=== PATIENT | female | born 1980 | race American Indian/Alaskan Native ===

== ENCOUNTER 2020-06-30 17:06 | Inpatient (IN) | payer MEDICAID ==
--- NOTE | 2020-06-30 18:41 | History and Physical Report ---
History of Present Illness Date of examination: 06/30/20 Chief complaint: sent over to triage for elevated b/p @ weeks, hx CHTN. History of present illness: EDC Confirmation: 08/04/2020 Past History : 1 Term Births: 0 Premature Births: 0 Living Children: 0 Para: 0 Mult. Births: 0 Prev : 0 Prev. attempt? 0 Aborta: 0 Elect. Ab: 0 Spont. 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 Infection History Hx of STD: none HIV Risk Eval: low risk Hepatitis B Risk Eval: low risk Personal hx. of genital herpes: no Partner hx. of genital herpes: no Rash, Viral, or Febrile illness since last LMP? no Varicella/Chicken Pox Status: Unknown TB Risk: no Genetic History ADVANCED MATERNAL AGE Congenital Heart Defect: Mom: no Dad: no Chirag Disease: Mom: no Dad: no Thalassemia Mom: no Dad: no Neural Tube Defect Mom: no Dad: no Down's Syndrome Mom: no Dad: no Redd-Sachs Mom: no Dad: no Sickle Cell Disease/Trait Mom: no Dad: no Hemophilia Mom: no Dad: no Muscular Dystrophy Mom: no Dad: no Cystic Fibrosis Mom: no Dad: no Stutsman Chorea Mom: no Dad: no Mental Retardation Mom: no Dad: no Fragile X Mom: no Dad: no Other Genetic/Chromosomal Disorder Mom: no Dad: no Child w/other defect Mom: no Dad: no Enviromental Exposures Xray Exposure: no Medication, drug, or alcohol use since LMP: no Chemical/Other Exposure: no Exposure to Cat Liter: no Hx of Parvovirus (Fifth Disease): no Occupational Exposure to Children: none Current Allergies: No known allergies Laboratory Results Date/Time Collected: 03/09/2020 Routine Urinalysis Leukocytes: negative Nitrite: negative Urobilinogen: negative Protein: Negative Blood: negative Ketone: negative Bilirubin: negative Glucose: Negative Urine HCG: positive Family History Summary: Father - Has Family History of Diabetes MGM - Has Family History of CVA or Stroke General Comments - FH: Pt did not know @ her biological father until recently Social History: Patient is Smoking History: Patient has never smoked. 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) Family/Genetic History: other (see HPI) Social history: - Obstetrical History Expected Date of Delivery: 08/04/20 Actual Gestation: 35 Week(s) 0 Day(s) : 1 Para: 0 Hx # Term Pregnancies: 0 Number of Pregnancies: 0 Spontaneous Abortions: 0 Induced : 0 Number of Living Children: 0 Medications and Allergies Allergies Allergy/AdvReac Type Severity Reaction Status Date / Time No Known Allergies Allergy Unverified 06/30/20 17:58 Home Medications Medication Instructions Recorded Confirmed Last Taken Type NIFEdipine [Nifedipine ER] 30 mg PO 06/30/20 06/30/20 History 1 Review of Systems All systems: negative - Vital Signs Vital signs: Vital Signs Pulse BP 69 175/92 06/30/20 17:57 06/30/20 17:57 Temp Pulse Resp BP Pulse Ox 98.6 F 67 20 157/94 99 06/30/20 17:59 06/30/20 18:33 06/30/20 17:59 06/30/20 18:27 06/30/20 18:33 - Physical Exam Breasts: Positive: normal Cardiovascular: Regular rate Lungs: Positive: Normal air movement Abdomen: Positive: normal appearance, soft Genitourinary (Female): Positive: normal external genitalia, normal perenium Vulva: both: normal Vagina: Positive: normal moisture Uterus: Positive: normal size, normal contour Anus/Rectum: Positive: normal perianal skin Extremities: Positive: normal Deep Tendon Reflex Grade: Normal +2 - Obstetrical FHR: auscultation normal Results All other labs normal. Assessment and Plan 39y/o @ 35 weeks, being followed by [facility] for HTN. She reports taking her nifedipine 30mg this morning. Denies LUNA, visual changes or epigastric pain. b/p in office 150/90. serial b/p's in triage 150-160's/90. Plan to admit for monitoring and 24h urine collection. Plan reviewed with patient, all questions addressed. Dr. Alvarez consulted in making plan of care. - Patient Problems (1) 35 weeks gestation of Current Visit: Yes Status: Acute (2) HTN (hypertension) Current Visit: Yes Status: Acute Qualifiers: Hypertension type: essential hypertension Qualified Code(s): I10 - Essential (primary) hypertension Plan to address problem: Monitor for pre-e superiposed on existing htn pre-e labs and repeat 24hr urine. 24hr urine TP 182 on 03/20/2020 (3) Advanced maternal age (AMA) in Current Visit: Yes Status: Acute
[2020-06-30] MEDS ORDERED: SODIUM CHLORIDE NASAL SPRAY 44ML NS PRN (18:48)
[2020-06-30] MEDS ORDERED: DOCUSATE SODIUM 100 MG CAP PO PRN (18:48)
[2020-06-30] MEDS ORDERED: ALUM-MAG HYDROXIDE-SIMETHICONE 200-200-20MG/5ML ORAL LIQD 30 ML PO PRN (18:48)
[2020-06-30] MEDS ORDERED: ONDANSETRON 4 MG/2 ML INJ IV PRN (18:48)
[2020-06-30] MEDS ORDERED: ACETAMINOPHEN 325 MG TAB PO PRN (18:48)
[2020-06-30] MEDS ORDERED: WITCH HAZEL/ GLYCERIN PAD TP PRN (18:48)
[2020-06-30] MEDS ORDERED: MAGNESIUM HYDROXIDE (MOM) ORAL LIQD UDC PO PRN (18:48)
[2020-06-30] MEDS ORDERED: diphenhydrAMINE 25 MG CAP PO PRN (18:48)
[2020-06-30] MEDS ORDERED: SIMETHICONE 80 MG CHEW TAB PO PRN (18:48)
[2020-06-30 19:28] LABS: Hematocrit 36.5 % (30.3-42.9); Hemoglobin 12.5 gm/dl (10.1-14.3); Mean Corpuscular HGB Conc 34 % (30-34); Mean Corpuscular Volume 93 fl (79-97); Platelet Count 209 K/mm3 (140-440); Red Blood Count 3.94 M/mm3 (3.65-5.03); Red Cell Distribution Width 14.1 % (13.2-15.2)
[2020-06-30 19:44] LABS: Alanine Aminotransferase 34 units/L (7-56); Uric Acid 4.8 mg/dL (3.5-7.6)
[2020-06-30] MEDS: BETAMET ACET/BETAMET NA PH 6 MG/ML INJ 5 ML MDV IM SCH (20:15)
[2020-07-01] MEDS ORDERED: ACETAMINOPHEN 325 MG TAB PO PRN (07:30)
--- NOTE | 2020-07-01 07:50 | Progress Note ---
Assessment and Plan A: 39 y.o. @ 35 + wks, cHTN r/o superimposed pre e. 24 hr urine in progress. Received 1 dose of steroids. P: Continue with current plan. Procardia XL 30 mg q day. 24 hr urine ends @ 190. Second dose of steroids @ 2014. Subjective - Subjective Date of service: 07/01/20 (Pt desires to go home.) Principal diagnosis: IUP @ 35 + wks, cHTN/ r/o superimposed pre e on cHTN Objective - Vital Signs Vital Signs: Vital Signs - 12hr 06/30/20 06/30/20 06/30/20 19:50 19:51 23:05 Temperature 97.9 F Pulse Rate 63 63 72 Respiratory 18 Rate Blood Pressure 161/78 133/74 Blood Pressure 161/78 [Right] 06/30/20 07/01/20 07/01/20 23:25 00:25 01:25 Temperature Pulse Rate 65 62 67 Respiratory Rate Blood Pressure 130/66 129/60 136/79 Blood Pressure [Right] 07/01/20 07/01/20 07/01/20 02:25 03:25 04:25 Temperature Pulse Rate 56 L 56 L 58 L Respiratory Rate Blood Pressure 144/70 141/73 122/66 Blood Pressure [Right] 07/01/20 07/01/20 07/01/20 05:25 06:25 06:31 Temperature Pulse Rate 60 63 63 Respiratory Rate Blood Pressure 123/60 119/61 135/69 Blood Pressure [Right] 07/01/20 07/01/20 06:39 07:09 Temperature 98.6 F Pulse Rate Respiratory 18 18 Rate Blood Pressure Blood Pressure [Right] - Exam Narrative Exam: Pt has a strong desire to go home. We discussed that she has to finish her 24 hour urine and that if she continues to be asymptomatic and her BP's stay WNL then its possible that she will be discharged home. Also second dose of steroids due @ 2014, She denies blurred vision, spots before her eyes, chest pain, shortness of breath, and upper abdominal pain. She has a mild LUNA but states that it is going away after Tylenol administration. Pt also uncomfortable with monitors. Will allow a break so that pt can shower and eat at this time. Will resume EFM after AM care. Breasts: deferred Cardiovascular: Regular rate Lungs: Normal air movement Abdomen: Present: normal appearance, soft Vulva: both: normal Uterus: Present: normal FHR: category 1 Uterine Contraction Monitor Mode: External Uterine Contraction Pattern: Absent Extremities: normal Deep Tendon Reflex Grade: Normal +2 - Labs Labs: Abnormal Labs 06/30/20 18:46 Lactate Dehydrogenase 278 H Laboratory Results - last 24 hr 06/30/20 06/30/20 06/30/20 18:46 18:46 20:20 WBC 6.9 RBC 3.94 Hgb 12.5 Hct 36.5 MCV 93 MCH 32 MCHC 34 RDW 14.1 Plt Count 209 Creatinine 0.6 Estimated GFR > 60 Uric Acid 4.8 AST 32 ALT 34 Lactate Dehydrogenase 278 H Blood Type O POSITIVE Antibody Screen Negative
[2020-07-01] MEDS ORDERED: ACETAMINOPHEN 500 MG TAB PO PRN (08:00)
[2020-07-01] MEDS: PRENATAL VIT27-FE FUMARATE-FOLIC ACID VIT TAB PO SCH (08:43)
[2020-07-01] MEDS ORDERED: NIFEdipine XL 30 MG TAB PO SCH (10:00)
[2020-07-01] MEDS ORDERED: NIFEdipine XL 30 MG TAB PO ONE (10:00)
--- NOTE | 2020-07-01 12:26 | Event Note ---
Date: 07/01/20 (Pt refusing IV placement) Was told by RN that pt did not have an IV and would need placement. RN tried to speak with pt regarding IV placement and pt continued to refuse. States that if her blood pressure is still elevated then she will allow IV placement. Had a few elevated BP's but mostly in the 120's-130's/60-80's. She continues to deny s/sx of pre e. Will continue to observe BP's and speak with patient again regarding IV placement.
--- NOTE | 2020-07-01 21:39 | Event Note ---
<CHARLES ABAD - Last Filed: 07/01/20 21:29> Date: 07/01/20 (Pt has strong desire to go home. ) Was called by the RN because they pt requested to go home , refused her second steroid injection, and wanted to talk with a provider. Went to go talk to the patient to explain that steroids needed to help with the maturation the baby's lungs. We also discussed the results of her 24 hr urine. The 24 hour urine total was higher today than in the office and d/t increase in protein in urine we will need to consult with [facility] for recommendations for further management. Pt has had some elevated blood pressures, 160's/80's this shift. She denies chest pain, blurred vision, spots before her eyes, shortness of breath, and upper abdominal pain. States that she has a slight LUNA that is relieved with Tylenol. Discussed with patient that it is likely that we will move towards delivery and she will not be able to go home at this time d/t increase in protein in urine sample with elevated blood pressures. Discussed pt with Dr. Faye. [facility] consult to be placed, and will await recommendations. Pt agrees at this time to get the second dose of steroids and also IV placement. She verbalized understanding of the plan of care and is in agreement. <MEGGAN FAYE - Last Filed: 07/01/20 22:06> Initial BP in the office on 06/30/20 was 180/100, the rechk in the office was 150/90. BP's stable now. She initially refused the second dose of steroids however after a discussion with Silverio Abad [facility] she now will accept the second dose. Will consult [facility] in am for guidance in this patient with CHTN with superimposed preeclampsia
[2020-07-01] MEDS ORDERED: BETAMET ACET/BETAMET NA PH 6 MG/ML INJ 5 ML MDV IM ONE (22:15)
[2020-07-01] MEDS: BETAMET ACET/BETAMET NA PH 6 MG/ML INJ 5 ML MDV IM SCH (22:40)
[2020-07-02] MEDS ORDERED: ACETAMINOPHEN 325 MG TAB PO PRN ×2 (01:58→13:07)
[2020-07-02] MEDS: NIFEdipine XL 30 MG TAB PO SCH (07:43)
--- NOTE | 2020-07-02 09:42 | Progress Note ---
Assessment and Plan A: 39 y.o. @ 35.2 wks. Category 1 EFM tracing. Increase in protein in 24 hr urine sample (182 on 03/19/2020 to 1020.0 on 07/01/2020). BP ranges 120-140's/50-80's. With 2 elevated BP 160's/80's/ during the day shift yesterday. [facility]. Awaiting recommendations. Subjective - Subjective Date of service: 07/02/20 (Pt doing well today) Principal diagnosis: IUP @ 35.2 wks, cHTN/ r/o superimposed pre e on cHTN Objective - Vital Signs Vital Signs: Vital Signs - 12hr 07/01/20 07/02/20 07/02/20 22:03 00:00 00:12 Temperature 98.7 F Pulse Rate 70 73 Respiratory 18 Rate Blood Pressure 129/59 142/74 O2 Sat by Pulse Oximetry 07/02/20 07/02/20 07/02/20 01:03 02:04 02:17 Temperature Pulse Rate 66 60 Respiratory 18 Rate Blood Pressure 157/76 134/68 O2 Sat by Pulse Oximetry 07/02/20 07/02/20 07/02/20 03:03 04:03 05:03 Temperature Pulse Rate 74 61 59 L Respiratory Rate Blood Pressure 130/73 125/67 136/79 O2 Sat by Pulse Oximetry 07/02/20 07/02/20 07/02/20 06:49 07:03 07:41 Temperature 99 F Pulse Rate 65 63 64 Respiratory 18 Rate Blood Pressure 135/82 130/68 O2 Sat by Pulse 100 Oximetry 07/02/20 07/02/20 07:42 09:04 Temperature Pulse Rate 64 61 Respiratory Rate Blood Pressure 126/65 O2 Sat by Pulse 99 Oximetry - Exam Narrative Exam: Pt denies LUNA, blurred vision, spots before her eyes, shortness of breath, chest pain, and upper abdominal pain. Explained plan of care for the day. Pt has completed a dose of steroids. Explained again the results of her 24 hr urine protein, during this admission 1020.0 which is an increase from 182 that was submitted in the office. [facility] has been consulted and called. Dr. Guerra ironworker for the group, left message that pt needs evaluation, and recommendations requested. Awaiting their recommendations. Pt verbalized understanding and agrees to the plan of care at this time. Breasts: deferred Cardiovascular: Regular rate Lungs: Normal air movement Abdomen: Present: normal appearance, soft Vulva: both: normal Uterus: Present: normal FHR: category 1 Uterine Contraction Monitor Mode: External Uterine Contraction Pattern: Absent Extremities: normal Deep Tendon Reflex Grade: Normal +2 - Labs Labs: Abnormal Labs 06/30/20 06/30/20 18:46 19:06 Lactate Dehydrogenase 278 H Ur Total Protein 24 Hr 1020.00 H Urine Total Protein 34 H Laboratory Results - last 24 hr 06/30/20 19:06 Urine Total Volume 3000 Ur Total Protein 24 Hr 1020.00 H Urine Total Protein 34 H
--- NOTE | 2020-07-02 10:24 | Consultation ---
Past History Social history: Medications and Allergies Allergies Allergy/AdvReac Type Severity Reaction Status Date / Time No Known Allergies Allergy Unverified 06/30/20 17:58 Home Medications Medication Instructions Recorded Confirmed Last Taken Type NIFEdipine [Nifedipine ER] 30 mg PO DAILY 06/30/20 07/01/20 06/30/20 History 1 Aspirin 1 tab PO DAILY 07/01/20 07/01/20 06/29/20 History Vitamin 1 tab PO DAILY 07/01/20 07/01/20 06/29/20 History Active Meds: Active Medications Acetaminophen (Tylenol) 325 mg PO Q6H PRN PRN Reason: Pain MILD(1-3)/Fever >100.5/LUNA Last Admin: 07/02/20 02:17 Dose: 325 mg Documented by: Al Hydrox/Mg Hydrox/Simethicone (Alum-Mag Hydrox-Simeth [phone]/5ml) 30 ml PO Q6H PRN PRN Reason: Indigestion Diphenhydramine HCl (Benadryl) 25 mg PO Q6H PRN PRN Reason: Itching Docusate Sodium (Colace) 100 mg PO Q12H PRN PRN Reason: Constipation Lactated Ringer's (Lactated Ringers) 1,000 mls @ 125 mls/hr IV DIRECT ARTHUR Magnesium Hydroxide (Milk Of Magnesia) 30 ml PO QHS PRN PRN Reason: Laxative Effect Multivitamins/Iron/Calcium ( Vitamin) 1 each PO QDAY [facility] Last Admin: 07/01/20 08:43 Dose: 1 each Documented by: Nifedipine (Procardia Xl) 30 mg PO Q24H [facility] Last Admin: 07/02/20 07:43 Dose: 30 mg Documented by: Ondansetron HCl (Zofran) 4 mg IV Q6H PRN PRN Reason: Nausea And Vomiting Simethicone (Mylicon) 80 mg PO Q6H PRN PRN Reason: Gas pain Sodium Chloride (Deep Sea) 2 spray NS Q4H PRN PRN Reason: Congestion Witch Na/Glycerin (Tucks Pad) 1 each TP PRN PRN PRN Reason: Hemorrhoids Exam - Constitutional Vitals: Temp Pulse Resp BP Pulse Ox 99 F 68 18 129/60 99 07/02/20 07:41 07/02/20 10:03 07/02/20 07:41 07/02/20 10:03 07/02/20 07:42 Results - Labs CBC & Chem 7: 06/30/20 18:46 06/30/20 18:46 Labs: Abnormal lab results 06/30/20 Range/Units 19:06 Ur Total Protein 24 Hr 1020.00 H (2-200) mg/dL Urine Total Protein 34 H (5-11.8) mg/dL Assessment and Plan AMFM Pt seen Consult to follow
[2020-07-02] MEDS: PRENATAL VIT27-FE FUMARATE-FOLIC ACID VIT TAB PO SCH (10:47)
[2020-07-02] MEDS ORDERED: DINOPROSTONE 10 MG VAG SUPP VG ONE (13:00)
[2020-07-02] MEDS ORDERED: TERBUTALINE 1 MG/1 ML INJ SUB-Q PRN (13:08)
[2020-07-02] MEDS ORDERED: MINERAL OIL 30 ML ORAL LIQD PO PRN (13:08)
[2020-07-02] MEDS ORDERED: ePHEDrine SULFATE 50 MG/1 ML INJ IV PRN (13:08)
--- NOTE | 2020-07-02 13:37 | Progress Note ---
Assessment and Plan Dr. Guerra's consul note reviewed Patient desire to proceed with delivery as recommended after US for EFW. Will place cervidil if vertex. Serial IOL explained, questions encouraged and answered. GBS culture obtained, start MagSO4 and antibiotics when in active labor PIH labs pending NICU consult ordered. - Patient Problems (1) 35 weeks gestation of Current Visit: Yes Status: Acute (2) Pre-eclampsia added to pre-existing hypertension Current Visit: Yes Status: Acute (3) Advanced maternal age (AMA) in Current Visit: Yes Status: Chronic (4) HTN (hypertension) Current Visit: Yes Status: Chronic Qualifiers: Hypertension type: essential hypertension Qualified Code(s): I10 - Essential (primary) hypertension (5) BMI 45.0-49.9, adult Current Visit: Yes Status: Chronic Subjective - Subjective Date of service: 07/02/20 Principal diagnosis: IUP @ 35.2 wks, cHTN/ r/o superimposed pre e on cHTN Patient reports: no new complaints Objective - Vital Signs Vital Signs: Vital Signs - 12hr 07/02/20 07/02/20 07/02/20 02:04 02:17 03:03 Temperature Pulse Rate 60 74 Respiratory 18 Rate Blood Pressure 134/68 130/73 O2 Sat by Pulse Oximetry 07/02/20 07/02/20 07/02/20 04:03 05:03 06:49 Temperature Pulse Rate 61 59 L 65 Respiratory Rate Blood Pressure 125/67 136/79 135/82 O2 Sat by Pulse Oximetry 07/02/20 07/02/20 07/02/20 07:03 07:41 07:42 Temperature 99 F Pulse Rate 63 64 64 Respiratory 18 Rate Blood Pressure 130/68 O2 Sat by Pulse 100 99 Oximetry 07/02/20 07/02/20 07/02/20 09:04 10:03 12:36 Temperature Pulse Rate 61 68 75 Respiratory Rate Blood Pressure 126/65 129/60 130/67 O2 Sat by Pulse Oximetry 07/02/20 12:38 Temperature 98.8 F Pulse Rate Respiratory Rate Blood Pressure O2 Sat by Pulse Oximetry - Exam Breasts: deferred Lungs: Normal air movement Abdomen: Present: soft. Absent: tenderness Vulva: both: normal Uterus: Present: fundal height above umbilicus. Absent: tenderness FHR: category 1 Uterine Contraction Monitor Mode: External Cervical Dilatation: 0 Cervical Effacement Percentage: 0 station: -3 Uterine Contraction Pattern: Absent Extremities: normal Deep Tendon Reflex Grade: Normal +2 - Labs Labs: Abnormal Labs 06/30/20 06/30/20 18:46 19:06 Lactate Dehydrogenase 278 H Ur Total Protein 24 Hr 1020.00 H Urine Total Protein 34 H Laboratory Results - last 24 hr 06/30/20 19:06 Urine Total Volume 3000 Ur Total Protein 24 Hr 1020.00 H Urine Total Protein 34 H
[2020-07-02] MEDS ORDERED: LACTATED RINGERS 1,000 ML IV SCH (14:00)
[2020-07-02] MEDS ORDERED: OXYTOCIN DRIP 30 UNITS/500 ML BAG IV SCH (14:00)
[2020-07-02] MEDS ORDERED: LIDOCAINE (2%) 20 MG/1 ML VIAL 20 ML MDV INFILTRATI ONE (14:00)
--- NOTE | 2020-07-02 15:21 | Progress Note ---
Assessment and Plan Questions encouraged and answered. Cervidil placed without difficulty - Patient Problems (1) 35 weeks gestation of Current Visit: Yes Status: Acute (2) Pre-eclampsia added to pre-existing hypertension Current Visit: Yes Status: Acute (3) Advanced maternal age (AMA) in Current Visit: Yes Status: Chronic (4) HTN (hypertension) Current Visit: Yes Status: Chronic Qualifiers: Hypertension type: essential hypertension Qualified Code(s): I10 - Essential (primary) hypertension (5) BMI 45.0-49.9, adult Current Visit: Yes Status: Chronic Subjective - Subjective Date of service: 07/02/20 Principal diagnosis: IUP @ 35.2 wks, cHTN/ r/o superimposed pre e on cHTN Patient reports: no new complaints Objective - Vital Signs Vital Signs: Vital Signs - 12hr 07/02/20 07/02/20 07/02/20 04:03 05:03 06:49 Temperature Pulse Rate 61 59 L 65 Respiratory Rate Blood Pressure 125/67 136/79 135/82 O2 Sat by Pulse Oximetry 07/02/20 07/02/20 07/02/20 07:03 07:41 07:42 Temperature 99 F Pulse Rate 63 64 64 Respiratory 18 Rate Blood Pressure 130/68 O2 Sat by Pulse 100 99 Oximetry 07/02/20 07/02/20 07/02/20 09:04 10:03 12:36 Temperature Pulse Rate 61 68 75 Respiratory Rate Blood Pressure 126/65 129/60 130/67 O2 Sat by Pulse Oximetry 07/02/20 07/02/20 07/02/20 12:38 15:01 15:18 Temperature 98.8 F Pulse Rate 72 79 Respiratory Rate Blood Pressure 129/72 O2 Sat by Pulse 98 Oximetry - Labs Labs: Abnormal Labs 06/30/20 06/30/20 18:46 19:06 Lactate Dehydrogenase 278 H Ur Total Protein 24 Hr 1020.00 H Urine Total Protein 34 H Laboratory Results - last 24 hr 06/30/20 19:06 Urine Total Volume 3000 Ur Total Protein 24 Hr 1020.00 H Urine Total Protein 34 H
[2020-07-02 15:22] LABS: Hematocrit 37.6 % (30.3-42.9); Hemoglobin 12.6 gm/dl (10.1-14.3); Mean Corpuscular HGB Conc 34 % (30-34); Mean Corpuscular Volume 93 fl (79-97); Platelet Count 242 K/mm3 (140-440); Red Blood Count 4.05 M/mm3 (3.65-5.03); Red Cell Distribution Width 14.4 % (13.2-15.2)
[2020-07-02 15:37] LABS: Alanine Aminotransferase 32 units/L (7-56); Uric Acid 5.3 mg/dL (3.5-7.6)
--- NOTE | 2020-07-02 20:25 | Ultrasound Report ---
ULTRASOUND OBSTETRIC INDICATION / CLINICAL INFORMATION: Preeclampsia with CHTN. Clinical Gestational Age (GA): 35 weeks 2.days TECHNIQUE: Transabdominal. COMPARISON: None available. FINDINGS: There is a single intrauterine . Biparietal Diameter = 8.0 cm = 32 weeks 1.days Head Circumference = 30 cm = 33 weeks 5.days Abdominal Circumference = 30 cm = 34 weeks. 2 days Femur Length = 6.5 cm = 33 weeks. 2 days Average Ultrasound Age (AUA) = 33 weeks. 3 days Heart Rate: 131 beats per minute. Estimated Weight in grams (if calculated): 2263 Position: cephalic. Placenta: free of the os. Amniotic Fluid Volume: normal Amniotic Fluid Index (OZ) in cm (if calculated): 13.3. Maternal Adnexa: No significant abnormality. IMPRESSION: 1. Single, living intrauterine with estimated sonographic age of 33 weeks 3.days 2. No significant sonographic abnormality. Signer Name: Arcadio Winchester MD Signed: 07/02/2020 8:20 PM Workstation Name: [id number]
[2020-07-02] MEDS ORDERED: fentaNYL 100 MCG/2 ML INJ IV ONE (21:21)
--- NOTE | 2020-07-03 00:45 | Event Note ---
Date: 07/03/20 (Pt feeling cramping) Called to room by RN stating that pt was feeling some cramping and needing more pain medication. Also she was having a category 2 EFM tracing that improved to Category 1 with administration of oxygen, IV fluids, and repositioning of the patient. Cervical exam remains unchanged. Cervidil d/t come out @ 0300am. Plan to pull Cervidil @ 0300 am and start Pitocin. Will also order pt something for sleep.
[2020-07-03] MEDS ORDERED: OXYTOCIN DRIP 30,000 MILLIUNITS/500 ML BAG IV ONE ×2 (00:56→05:40)
[2020-07-03] MEDS ORDERED: diphenhydrAMINE 50 MG CAP PO ONE (01:00)
[2020-07-03] MEDS: fentaNYL 100 MCG/2 ML INJ IV PRN ×2 (01:51→08:45)
[2020-07-03] MEDS: NIFEdipine XL 30 MG TAB PO SCH (05:56)
--- NOTE | 2020-07-03 06:10 | Progress Note ---
Assessment and Plan Pt side lying C/O increased "cramping" with contractions. Reviewed IOL and the anticipated process. Encouraged pt to be OOB to chair when awake and to distract herself when she has a ctx. Also advised that pain meds must be used sparingly Asked pt if she had any questions. None were voiced. - Patient Problems (1) Pre-eclampsia added to pre-existing hypertension Onset Date: ~07/03/20 Current Visit: Yes Status: Acute Plan to address problem: BP 120/80-70 No c/o LUNA, blurred vision, chest pain Procardia XL QD Subjective - Subjective Date of service: 07/03/20 (pt c/o increased cramping) Principal diagnosis: IUP @ 35.3 wks, cHTN/ r/o superimposed pre e on cHTN Patient reports: movement normal, no new complaints Objective - Vital Signs Vital Signs: Vital Signs - 12hr 07/02/20 07/02/20 07/02/20 18:17 19:16 19:39 Temperature 98.8 F Pulse Rate 60 62 68 Respiratory Rate Blood Pressure 123/64 111/60 119/67 Blood Pressure [Right] 07/02/20 07/02/20 07/02/20 19:41 20:16 21:17 Temperature 98.5 F Pulse Rate 68 67 63 Respiratory 16 Rate Blood Pressure 120/58 126/60 Blood Pressure 119/67 [Right] 07/02/20 07/02/20 07/03/20 22:16 23:16 00:18 Temperature Pulse Rate 55 L 59 L 59 L Respiratory Rate Blood Pressure 117/59 121/59 140/79 Blood Pressure [Right] 07/03/20 07/03/20 07/03/20 01:16 02:17 03:16 Temperature Pulse Rate 62 56 L 59 L Respiratory Rate Blood Pressure 138/73 128/71 126/64 Blood Pressure [Right] 07/03/20 07/03/20 04:16 05:16 Temperature Pulse Rate 59 L 53 L Respiratory Rate Blood Pressure 127/69 127/58 Blood Pressure [Right] - Exam Breasts: deferred Cardiovascular: Regular rate Lungs: Normal air movement Abdomen: Present: normal appearance, soft. Absent: distention, tenderness Uterus: Present: normal FHR: auscultation normal, category 1 Uterine Contraction Monitor Mode: External Cervical Dilatation: 1 (per RN) Cervical Effacement Percentage: 50 station: -3 Uterine Contraction Pattern: Irregular Uterine Tone Measurement Phase: Resting Uterine Contraction Intensity: Mild - Labs Labs: Abnormal Labs 06/30/20 06/30/20 07/02/20 18:46 19:06 14:45 Lactate Dehydrogenase 278 H 295 H Ur Total Protein 24 Hr 1020.00 H Urine Total Protein 34 H Laboratory Results - last 24 hr 07/02/20 07/02/20 07/02/20 14:45 14:45 14:45 WBC 10.7 RBC 4.05 Hgb 12.6 Hct 37.6 MCV 93 MCH 31 MCHC 34 RDW 14.4 Plt Count 242 Creatinine 0.7 Estimated GFR > 60 Uric Acid 5.3 AST 23 ALT 32 Lactate Dehydrogenase 295 H Syphilis IgG Antibody Nonreactive
[2020-07-03] MEDS ORDERED: diphenhydrAMINE 50 MG/ML VIAL ONE (08:42)
[2020-07-03] MEDS: PRENATAL VIT27-FE FUMARATE-FOLIC ACID VIT TAB PO SCH ×2 (10:00→17:58)
[2020-07-03] MEDS ORDERED: DINOPROSTONE 10 MG VAG SUPP VG ONE (19:00)
[2020-07-03] MEDS ORDERED: ZOLPIDEM 5 MG TAB PO PRN (20:05)
--- NOTE | 2020-07-03 21:12 | Consultation ---
Consult Note - Parent Education I met with parent(s) and discussed the following:: Need for NICU admission, Temp erature regulation, Importance of providing breast milk & encouraged pumping aft delivery, Slow feeding advancement and monitoring of tolerance. NG/OG feeds, Need to monitor for jaundice Parent(s) demonstrated understanding of all the information:: Yes Assessment and Plan - Assessment Gestation:: 35 - Plan Plan: Agree with Mag & steroids Will attend delivery Please call NICU with questions
[2020-07-04] MEDS: fentaNYL 100 MCG/2 ML INJ IV PRN ×3 (00:20→15:01)
[2020-07-04] MEDS: LACTATED RINGERS 1,000 ML IV SCH ×2 (02:39→09:36)
--- NOTE | 2020-07-04 08:16 | Progress Note ---
Assessment and Plan 39y/o @ 35+4wk, IOL for htn with superimposed pre-e. cervidil removed, SVE unchanged. plan discussed with patient for cytotec today and reassess this afternoon. Encouraged pt to get out of bed, shower, eat breakfast and walk around room. All questions addressed, pt and s/o verbalize understanding. - Patient Problems (1) 35 weeks gestation of Current Visit: Yes Status: Acute (2) HTN (hypertension) Current Visit: Yes Status: Chronic Qualifiers: Hypertension type: essential hypertension Qualified Code(s): I10 - E ssential (primary) hypertension Plan to address problem: continue Procardia 30mg QDay (3) Advanced maternal age (AMA) in Current Visit: Yes Status: Chronic (4) Pre-eclampsia added to pre-existing hypertension Onset Date: ~07/03/20 Current Visit: Yes Status: Acute Plan to address problem: continue IOL Magnesium Sulfate for neuroprotection when in labor Strict I & O's Monitor for worsening Pre-eclampsia (5) BMI 45.0-49.9, adult Current Visit: Yes Status: Chronic Plan to address problem: consider wireless monitoring to assist in monitoring Subjective - Subjective Date of service: 07/04/20 Principal diagnosis: IUP @ 35.4 wks, cHTN/ r/o superimposed pre e on cHTN Interval history: EDC Confirmation: 08/04/2020 Past History : 1 Term Births: 0 Premature Births: 0 Living Children: 0 Para: 0 Mult. Births: 0 Prev : 0 Prev. attempt? 0 Aborta: 0 Elect. Ab: 0 Spont. 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 Infection History Hx of STD: none HIV Risk Eval: low risk Hepatitis B Risk Eval: low risk Personal hx. of genital herpes: no Partner hx. of genital herpes: no Rash, Viral, or Febrile illness since last LMP? no Varicella/Chicken Pox Status: Unknown TB Risk: no Genetic History ADVANCED MATERNAL AGE Congenital Heart Defect: Mom: no Dad: no Chirag Disease: Mom: no Dad: no Thalassemia Mom: no Dad: no Neural Tube Defect Mom: no Dad: no Down's Syndrome Mom: no Dad: no Redd-Sachs Mom: no Dad: no Sickle Cell Disease/Trait Mom: no Dad: no Hemophilia Mom: no Dad: no Muscular Dystrophy Mom: no Dad: no Cystic Fibrosis Mom: no Dad: no Louisa Chorea Mom: no Dad: no Mental Retardation Mom: no Dad: no Fragile X Mom: no Dad: no Other Genetic/Chromosomal Disorder Mom: no Dad: no Child w/other defect Mom: no Dad: no Enviromental Exposures Xray Exposure: no Medication, drug, or alcohol use since LMP: no Chemical/Other Exposure: no Exposure to Cat Liter: no Hx of Parvovirus (Fifth Disease): no Occupational Exposure to Children: none Current Allergies: No known allergies Laboratory Results Date/Time Collected: 03/09/2020 Routine Urinalysis Leukocytes: negative Nitrite: negative Urobilinogen: negative Protein: Negative Blood: negative Ketone: negative Bilirubin: negative Glucose: Negative Urine HCG: positive Family History Summary: Father - Has Family History of Diabetes MGM - Has Family History of CVA or Stroke General Comments - FH: Pt did not know @ her biological father until recently Social History: Patient is Smoking History: Patient has never smoked. Patient reports: movement normal, contractions, no loss of fluid, no vaginal bleeding Objective - Vital Signs Vital Signs: Vital Signs - 12hr 07/03/20 07/03/20 07/03/20 20:28 20:30 20:33 Temperature Pulse Rate 73 66 73 Respiratory Rate Blood Pressure 115/73 Blood Pressure [Right] O2 Sat by Pulse 98 100 Oximetry 07/03/20 07/03/20 07/03/20 20:38 20:43 20:48 Temperature Pulse Rate 65 65 66 Respiratory Rate Blood Pressure Blood Pressure [Right] O2 Sat by Pulse 98 97 98 Oximetry 07/03/20 07/03/20 07/03/20 20:53 20:58 21:00 Temperature Pulse Rate 72 66 67 Respiratory Rate Blood Pressure 115/59 Blood Pressure [Right] O2 Sat by Pulse 98 97 Oximetry 07/03/20 07/03/20 07/03/20 21:03 21:08 21:13 Temperature Pulse Rate 64 59 L 63 Respiratory Rate Blood Pressure Blood Pressure [Right] O2 Sat by Pulse 96 97 96 Oximetry 07/03/20 07/03/20 07/03/20 21:14 21:18 21:23 Temperature Pulse Rate 64 68 60 Respiratory Rate Blood Pressure Blood Pressure [Right] O2 Sat by Pulse 94 96 96 Oximetry 07/03/20 07/03/20 07/03/20 21:28 21:31 21:33 Temperature Pulse Rate 62 69 61 Respiratory Rate Blood Pressure 118/58 Blood Pressure [Right] O2 Sat by Pulse 96 99 Oximetry 07/03/20 07/03/20 07/03/20 21:38 21:43 21:48 Temperature Pulse Rate 61 59 L 61 Respiratory Rate Blood Pressure Blood Pressure [Right] O2 Sat by Pulse 97 98 97 Oximetry 07/03/20 07/03/20 07/03/20 21:53 21:58 22:03 Temperature Pulse Rate 63 64 61 Respiratory Rate Blood Pressure Blood Pressure [Right] O2 Sat by Pulse 98 97 99 Oximetry 07/03/20 07/03/20 07/03/20 22:08 22:13 22:18 Temperature Pulse Rate 69 60 61 Respiratory Rate Blood Pressure Blood Pressure [Right] O2 Sat by Pulse 98 97 98 Oximetry 07/03/20 07/03/20 07/03/20 22:23 22:25 22:28 Temperature Pulse Rate 60 74 57 L Respiratory Rate Blood Pressure Blood Pressure [Right] O2 Sat by Pulse 96 94 98 Oximetry 07/03/20 07/03/20 07/03/20 22:31 22:33 22:38 Temperature Pulse Rate 68 61 65 Respiratory Rate Blood Pressure 138/67 Blood Pressure [Right] O2 Sat by Pulse 96 98 Oximetry 07/03/20 07/03/20 07/03/20 22:43 22:49 22:54 Temperature Pulse Rate 69 103 H 59 L Respiratory Rate Blood Pressure Blood Pressure [Right] O2 Sat by Pulse 81 L 77 L 100 Oximetry 1107/03/20 07/03/20 22:59 23:04 23:09 Temperature Pulse Rate 58 L 64 60 Respiratory Rate Blood Pressure Blood Pressure [Right] O2 Sat by Pulse 98 98 99 Oximetry 07/03/20 07/03/20 07/03/20 23:14 23:19 23:24 Temperature Pulse Rate 64 63 63 Respiratory Rate Blood Pressure Blood Pressure [Right] O2 Sat by Pulse 99 98 96 Oximetry 07/03/20 07/03/20 07/03/20 23:29 23:31 23:34 Temperature Pulse Rate 57 L 56 L 63 Respiratory Rate Blood Pressure 126/64 Blood Pressure [Right] O2 Sat by Pulse 96 97 Oximetry 07/03/20 07/03/20 07/03/20 23:39 23:44 23:49 Temperature Pulse Rate 66 55 L 64 Respiratory Rate Blood Pressure Blood Pressure [Right] O2 Sat by Pulse 97 96 96 Oximetry 07/03/20 07/03/20 07/04/20 23:54 23:59 00:00 Temperature 98.8 F Pulse Rate 60 58 L 64 Respiratory 16 Rate Blood Pressure Blood Pressure 119/61 [Right] O2 Sat by Pulse 96 99 100 Oximetry 07/04/20 07/04/20 07/04/20 00:04 00:07 00:09 Temperature Pulse Rate 58 L 60 71 Respiratory Rate Blood Pressure Blood Pressure [Right] O2 Sat by Pulse 98 86 83 L Oximetry 07/04/20 07/04/20 07/04/20 00:14 00:19 00:20 Temperature Pulse Rate 76 62 Respiratory 18 Rate Blood Pressure Blood Pressure [Right] O2 Sat by Pulse 100 100 Oximetry 07/04/20 07/04/20 07/04/20 00:22 00:25 00:27 Temperature Pulse Rate 62 65 Respiratory Rate Blood Pressure Blood Pressure [Right] O2 Sat by Pulse 82 L 94 89 Oximetry 07/04/20 07/04/20 07/04/20 00:30 00:31 00:33 Temperature Pulse Rate 60 60 Respiratory Rate Blood Pressure 119/62 Blood Pressure [Right] O2 Sat by Pulse 93 87 Oximetry 07/04/20 07/04/20 07/04/20 00:35 00:40 00:45 Temperature Pulse Rate 51 L 64 55 L Respiratory Rate Blood Pressure Blood Pressure [Right] O2 Sat by Pulse 91 100 96 Oximetry 11/07/04/20 07/04/20 01:04 01:06 01:21 Temperature Pulse Rate 68 69 88 Respiratory Rate Blood Pressure Blood Pressure [Right] O2 Sat by Pulse 73 L 70 L 72 L Oximetry 07/04/20 07/04/20 07/04/20 01:28 01:31 01:33 Temperature Pulse Rate 66 64 66 Respiratory Rate Blood Pressure 122/59 Blood Pressure [Right] O2 Sat by Pulse 81 L 99 Oximetry 07/04/20 07/04/20 07/04/20 01:38 01:43 01:48 Temperature Pulse Rate 70 63 63 Respiratory Rate Blood Pressure Blood Pressure [Right] O2 Sat by Pulse 97 97 98 Oximetry 07/04/20 07/04/20 07/04/20 01:53 01:58 02:03 Temperature Pulse Rate 74 68 74 Respiratory Rate Blood Pressure Blood Pressure [Right] O2 Sat by Pulse 98 99 99 Oximetry 07/04/20 07/04/20 07/04/20 02:08 02:13 02:18 Temperature Pulse Rate 68 64 73 Respiratory Rate Blood Pressure Blood Pressure [Right] O2 Sat by Pulse 95 97 97 Oximetry 07/04/20 07/04/20 07/04/20 02:23 02:47 02:48 Temperature Pulse Rate 68 82 57 L Respiratory Rate Blood Pressure Blood Pressure [Right] O2 Sat by Pulse 98 91 88 Oximetry 07/04/20 07/04/20 07/04/20 02:52 02:57 03:02 Temperature Pulse Rate 64 72 62 Respiratory Rate Blood Pressure Blood Pressure [Right] O2 Sat by Pulse 100 100 100 Oximetry 07/04/20 07/04/20 07/04/20 03:07 03:12 03:17 Temperature Pulse Rate 76 70 67 Respiratory Rate Blood Pressure Blood Pressure [Right] O2 Sat by Pulse 100 100 100 Oximetry 07/04/20 07/04/20 07/04/20 03:22 03:27 03:31 Temperature Pulse Rate 64 76 63 Respiratory Rate Blood Pressure 132/67 Blood Pressure [Right] O2 Sat by Pulse 100 100 Oximetry 07/04/20 07/04/20 07/04/20 03:32 03:37 03:42 Temperature Pulse Rate 57 L 60 60 Respiratory Rate Blood Pressure Blood Pressure [Right] O2 Sat by Pulse 100 100 100 Oximetry 07/04/20 07/04/20 07/04/20 03:47 03:52 03:57 Temperature Pulse Rate 57 L 63 65 Respiratory Rate Blood Pressure Blood Pressure [Right] O2 Sat by Pulse 100 100 100 Oximetry 07/04/20 07/04/20 07/04/20 04:00 04:02 04:07 Temperature 98.9 F Pulse Rate 63 57 L 74 Respiratory 16 Rate Blood Pressure Blood Pressure 132/67 [Right] O2 Sat by Pulse 100 100 99 Oximetry 07/04/20 07/04/20 07/04/20 04:12 04:17 04:22 Temperature Pulse Rate 68 64 63 Respiratory Rate Blood Pressure Blood Pressure [Right] O2 Sat by Pulse 95 94 95 Oximetry 07/04/20 07/04/20 07/04/20 04:27 04:31 04:32 Temperature Pulse Rate 62 58 L 67 Respiratory Rate Blood Pressure 128/59 Blood Pressure [Right] O2 Sat by Pulse 95 96 Oximetry 07/04/20 07/04/20 07/04/20 04:37 04:42 04:47 Temperature Pulse Rate 64 66 61 Respiratory Rate Blood Pressure Blood Pressure [Right] O2 Sat by Pulse 96 97 97 Oximetry 07/04/20 07/04/20 07/04/20 04:52 04:57 05:02 Temperature Pulse Rate 65 70 66 Respiratory Rate Blood Pressure Blood Pressure [Right] O2 Sat by Pulse 95 98 96 Oximetry 07/04/20 07/04/20 07/04/20 05:07 05:12 05:17 Temperature Pulse Rate 68 60 60 Respiratory Rate Blood Pressure Blood Pressure [Right] O2 Sat by Pulse 99 97 97 Oximetry 07/04/20 07/04/20 07/04/20 05:22 05:27 05:31 Temperature Pulse Rate 64 59 L 63 Respiratory Rate Blood Pressure 135/63 Blood Pressure [Right] O2 Sat by Pulse 97 97 Oximetry 07/04/20 07/04/20 07/04/20 05:32 05:37 05:42 Temperature Pulse Rate 71 73 74 Respiratory Rate Blood Pressure Blood Pressure [Right] O2 Sat by Pulse 96 95 98 Oximetry 07/04/20 07/04/20 07/04/20 05:47 05:52 06:24 Temperature Pulse Rate 75 72 77 Respiratory Rate Blood Pressure Blood Pressure [Right] O2 Sat by Pulse 99 99 99 Oximetry 07/04/20 07/04/20 07/04/20 06:29 06:31 06:34 Temperature Pulse Rate 67 65 60 Respiratory Rate Blood Pressure 132/65 Blood Pressure [Right] O2 Sat by Pulse 98 97 Oximetry 07/04/20 07/04/20 07/04/20 06:39 06:44 06:49 Temperature Pulse Rate 64 60 59 L Respiratory Rate Blood Pressure Blood Pressure [Right] O2 Sat by Pulse 98 98 98 Oximetry 07/04/20 07/04/20 07/04/20 06:54 06:59 07:04 Temperature Pulse Rate 79 58 L 64 Respiratory Rate Blood Pressure Blood Pressure [Right] O2 Sat by Pulse 98 98 98 Oximetry 07/04/20 07/04/20 07/04/20 07:09 07:14 07:19 Temperature Pulse Rate 72 65 72 Respiratory Rate Blood Pressure Blood Pressure [Right] O2 Sat by Pulse 98 99 100 Oximetry 07/04/20 07/04/20 07/04/20 07:24 07:29 07:31 Temperature Pulse Rate 68 67 68 Respiratory Rate Blood Pressure 133/66 Blood Pressure [Right] O2 Sat by Pulse 98 99 Oximetry 07/04/20 07/04/20 07/04/20 07:34 07:39 07:44 Temperature Pulse Rate 59 L 60 72 Respiratory Rate Blood Pressure Blood Pressure [Right] O2 Sat by Pulse 98 98 96 Oximetry 07/04/20 07/04/20 07/04/20 07:49 07:54 07:59 Temperature 99.1 F Pulse Rate 65 72 64 Respiratory 18 Rate Blood Pressure Blood Pressure 133/74 [Right] O2 Sat by Pulse 99 98 99 Oximetry 07/04/20 07/04/20 07/04/20 08:00 08:04 08:09 Temperature Pulse Rate 65 68 63 Respiratory Rate Blood Pressure 133/74 Blood Pressure [Right] O2 Sat by Pulse 99 98 Oximetry - Exam Cardiovascular: Regular rate Lungs: Normal air movement Abdomen: Present: normal appearance, soft Vulva: both: normal Uterus: Present: normal FHR: auscultation normal Uterine Contraction Monitor Mode: External Cervical Dilatation: 0.5 Cervical Effacement Percentage: 0 station: -3 Uterine Contraction Frequency (min): 3-4 Uterine Contraction Duration: 60 Uterine Contraction Pattern: Irregular Uterine Contraction Intensity: Moderate - Labs Labs: Abnormal Labs 06/30/20 06/30/20 07/02/20 18:46 19:06 14:45 Lactate Dehydrogenase 278 H 295 H Ur Total Protein 24 Hr 1020.00 H Urine Total Protein 34 H Laboratory Results - last 24 hr 07/03/20 07:48 Blood Type O POSITIVE Antibody Screen Negative
[2020-07-04] MEDS: NIFEdipine XL 30 MG TAB PO SCH (09:36)
[2020-07-04] MEDS: PRENATAL VIT27-FE FUMARATE-FOLIC ACID VIT TAB PO SCH (09:36)
[2020-07-04] MEDS ORDERED: BUTORPHANOL 2 MG/1 ML INJ IV PRN (10:00)
[2020-07-04] MEDS: miSOPROStol 25 MCG TAB VG SCH ×2 (10:52→15:13)
--- NOTE | 2020-07-04 16:16 | Progress Note ---
Assessment and Plan - Patient Problems (1) 35 weeks gestation of Current Visit: Yes Status: Acute (2) Pre-eclampsia added to pre-existing hypertension Onset Date: ~07/03/20 Current Visit: Yes Status: Acute Plan to address problem: Will check patient when it's time for her next cytotec dose to determine POC. POC discussed with patient and her , questions encouraged and answered, voiced understanding and agrees with POC (3) Advanced maternal age (AMA) in Current Visit: Yes Status: Chronic (4) HTN (hypertension) Current Visit: Yes Status: Chronic Qualifiers: Hypertension type: essential hypertension Qualified Code(s): I10 - Essential (primary) hypertension (5) BMI 45.0-49.9, adult Current Visit: Yes Status: Chronic Subjective - Subjective Date of service: 07/04/20 Principal diagnosis: IUP @ 35.4 wks, cHTN/ r/o superimposed pre e on cHTN Patient reports: movement normal, contractions, no loss of fluid, no vaginal bleeding Objective - Vital Signs Vital Signs: Vital Signs - 12hr 07/04/20 07/04/20 07/04/20 04:17 04:22 04:27 Temperature Pulse Rate 64 63 62 Respiratory Rate Blood Pressure Blood Pressure [Right] O2 Sat by Pulse 94 95 95 Oximetry 07/04/20 07/04/20 07/04/20 04:31 04:32 04:37 Temperature Pulse Rate 58 L 67 64 Respiratory Rate Blood Pressure 128/59 Blood Pressure [Right] O2 Sat by Pulse 96 96 Oximetry 07/04/20 07/04/20 07/04/20 04:42 04:47 04:52 Temperature Pulse Rate 66 61 65 Respiratory Rate Blood Pressure Blood Pressure [Right] O2 Sat by Pulse 97 97 95 Oximetry 07/04/20 07/04/20 07/04/20 04:57 05:02 05:07 Temperature Pulse Rate 70 66 68 Respiratory Rate Blood Pressure Blood Pressure [Right] O2 Sat by Pulse 98 96 99 Oximetry 07/04/20 07/04/20 07/04/20 05:12 05:17 05:22 Temperature Pulse Rate 60 60 64 Respiratory Rate Blood Pressure Blood Pressure [Right] O2 Sat by Pulse 97 97 97 Oximetry 07/04/20 07/04/20 07/04/20 05:27 05:31 05:32 Temperature Pulse Rate 59 L 63 71 Respiratory Rate Blood Pressure 135/63 Blood Pressure [Right] O2 Sat by Pulse 97 96 Oximetry 07/04/20 07/04/20 07/04/20 05:37 05:42 05:47 Temperature Pulse Rate 73 74 75 Respiratory Rate Blood Pressure Blood Pressure [Right] O2 Sat by Pulse 95 98 99 Oximetry 07/04/20 07/04/20 07/04/20 05:52 06:24 06:29 Temperature Pulse Rate 72 77 67 Respiratory Rate Blood Pressure Blood Pressure [Right] O2 Sat by Pulse 99 99 98 Oximetry 07/04/20 07/04/20 07/04/20 06:31 06:34 06:39 Temperature Pulse Rate 65 60 64 Respiratory Rate Blood Pressure 132/65 Blood Pressure [Right] O2 Sat by Pulse 97 98 Oximetry 07/04/20 07/04/20 07/04/20 06:44 06:49 06:54 Temperature Pulse Rate 60 59 L 79 Respiratory Rate Blood Pressure Blood Pressure [Right] O2 Sat by Pulse 98 98 98 Oximetry 07/04/20 07/04/20 07/04/20 06:59 07:04 07:09 Temperature Pulse Rate 58 L 64 72 Respiratory Rate Blood Pressure Blood Pressure [Right] O2 Sat by Pulse 98 98 98 Oximetry 07/04/20 07/04/20 07/04/20 07:14 07:19 07:24 Temperature Pulse Rate 65 72 68 Respiratory Rate Blood Pressure Blood Pressure [Right] O2 Sat by Pulse 99 100 98 Oximetry 07/04/20 07/04/20 07/04/20 07:29 07:31 07:34 Temperature Pulse Rate 67 68 59 L Respiratory Rate Blood Pressure 133/66 Blood Pressure [Right] O2 Sat by Pulse 99 98 Oximetry 07/04/20 07/04/20 07/04/20 07:39 07:44 07:49 Temperature Pulse Rate 60 72 65 Respiratory Rate Blood Pressure Blood Pressure [Right] O2 Sat by Pulse 98 96 99 Oximetry 07/04/20 07/04/20 07/04/20 07:54 07:59 08:00 Temperature 99.1 F Pulse Rate 72 64 65 Respiratory 18 Rate Blood Pressure 133/74 Blood Pressure 133/74 [Right] O2 Sat by Pulse 98 99 Oximetry 07/04/20 07/04/20 07/04/20 08:04 08:09 08:14 Temperature Pulse Rate 68 63 66 Respiratory Rate Blood Pressure Blood Pressure [Right] O2 Sat by Pulse 99 98 98 Oximetry 07/04/20 07/04/20 07/04/20 08:19 08:24 08:29 Temperature Pulse Rate 68 72 63 Respiratory Rate Blood Pressure Blood Pressure [Right] O2 Sat by Pulse 96 99 97 Oximetry 07/04/20 07/04/20 07/04/20 08:33 08:34 08:39 Temperature Pulse Rate 74 39 L 94 H Respiratory Rate Blood Pressure Blood Pressure [Right] O2 Sat by Pulse 67 L 66 L 90 Oximetry 07/04/20 07/04/20 07/04/20 08:44 08:49 08:54 Temperature Pulse Rate 63 126 H Respiratory Rate Blood Pressure Blood Pressure [Right] O2 Sat by Pulse 98 76 L 76 L Oximetry 07/04/20 07/04/20 07/04/20 09:00 09:37 10:39 Temperature Pulse Rate 103 H Respiratory Rate Blood Pressure Blood Pressure [Right] O2 Sat by Pulse 79 L 78 L 76 L Oximetry 07/04/20 07/04/20 07/04/20 10:45 10:49 10:50 Temperature Pulse Rate 147 H 73 74 Respiratory Rate Blood Pressure 134/71 Blood Pressure [Right] O2 Sat by Pulse 84 99 Oximetry 07/04/20 07/04/20 07/04/20 10:55 11:00 11:05 Temperature Pulse Rate 77 75 66 Respiratory Rate Blood Pressure Blood Pressure [Right] O2 Sat by Pulse 99 99 97 Oximetry 07/04/20 07/04/20 07/04/20 11:10 11:15 11:20 Temperature Pulse Rate 73 72 64 Respiratory Rate Blood Pressure Blood Pressure [Right] O2 Sat by Pulse 98 98 95 Oximetry 07/04/20 07/04/20 07/04/20 11:25 11:30 11:35 Temperature Pulse Rate 64 65 66 Respiratory Rate Blood Pressure Blood Pressure [Right] O2 Sat by Pulse 96 97 99 Oximetry 07/04/20 07/04/20 07/04/20 11:39 11:40 11:45 Temperature Pulse Rate 76 66 64 Respiratory Rate Blood Pressure Blood Pressure [Right] O2 Sat by Pulse 81 L 98 96 Oximetry 07/04/20 07/04/20 07/04/20 11:50 11:55 12:00 Temperature Pulse Rate 58 L 76 66 Respiratory Rate Blood Pressure Blood Pressure [Right] O2 Sat by Pulse 95 95 97 Oximetry 07/04/20 07/04/20 07/04/20 12:05 12:10 12:15 Temperature Pulse Rate 59 L 65 59 L Respiratory Rate Blood Pressure Blood Pressure [Right] O2 Sat by Pulse 97 97 97 Oximetry 07/04/20 07/04/20 07/04/20 12:20 12:25 12:30 Temperature Pulse Rate 72 59 L 63 Respiratory Rate Blood Pressure Blood Pressure [Right] O2 Sat by Pulse 98 97 96 Oximetry 07/04/20 07/04/20 07/04/20 12:34 12:35 12:40 Temperature Pulse Rate 75 64 75 Respiratory Rate Blood Pressure Blood Pressure [Right] O2 Sat by Pulse 93 96 95 Oximetry 07/04/20 07/04/20 07/04/20 12:45 12:50 12:55 Temperature Pulse Rate 74 56 L 72 Respiratory Rate Blood Pressure Blood Pressure [Right] O2 Sat by Pulse 96 97 97 Oximetry 07/04/20 07/04/20 07/04/20 13:00 13:05 13:10 Temperature Pulse Rate 56 L 62 65 Respiratory Rate Blood Pressure Blood Pressure [Right] O2 Sat by Pulse 96 97 98 Oximetry 07/04/20 07/04/20 07/04/20 13:15 13:20 13:25 Temperature Pulse Rate 62 68 70 Respiratory Rate Blood Pressure Blood Pressure [Right] O2 Sat by Pulse 97 97 97 Oximetry 07/04/20 07/04/20 07/04/20 13:30 13:35 13:40 Temperature Pulse Rate 75 66 70 Respiratory Rate Blood Pressure Blood Pressure [Right] O2 Sat by Pulse 99 97 98 Oximetry 07/04/20 07/04/20 07/04/20 13:45 13:48 13:50 Temperature Pulse Rate 70 73 73 Respiratory Rate Blood Pressure Blood Pressure [Right] O2 Sat by Pulse 97 94 94 Oximetry 07/04/20 07/04/20 07/04/20 13:54 13:55 15:16 Temperature 99.4 F Pulse Rate 67 75 60 Respiratory 18 Rate Blood Pressure Blood Pressure 137/64 [Right] O2 Sat by Pulse 94 98 Oximetry 07/04/20 07/04/20 07/04/20 15:17 15:18 15:22 Temperature Pulse Rate 63 60 59 L Respiratory Rate Blood Pressure 137/64 Blood Pressure [Right] O2 Sat by Pulse 95 95 Oximetry 07/04/20 07/04/20 07/04/20 15:23 15:27 15:28 Temperature Pulse Rate 58 L 63 63 Respiratory Rate Blood Pressure Blood Pressure [Right] O2 Sat by Pulse 94 94 94 Oximetry 07/04/20 07/04/20 07/04/20 15:32 15:36 15:37 Temperature Pulse Rate 60 63 63 Respiratory Rate Blood Pressure Blood Pressure [Right] O2 Sat by Pulse 94 94 95 Oximetry 07/04/20 07/04/20 07/04/20 15:41 15:42 15:46 Temperature Pulse Rate 58 L 72 65 Respiratory Rate Blood Pressure Blood Pressure [Right] O2 Sat by Pulse 94 96 93 Oximetry 07/04/20 07/04/20 07/04/20 15:47 15:52 15:57 Temperature Pulse Rate 61 61 71 Respiratory Rate Blood Pressure Blood Pressure [Right] O2 Sat by Pulse 94 94 95 Oximetry 07/04/20 07/04/20 07/04/20 16:02 16:05 16:07 Temperature Pulse Rate 64 71 64 Respiratory Rate Blood Pressure Blood Pressure [Right] O2 Sat by Pulse 96 94 95 Oximetry 07/04/20 07/04/20 16:10 16:12 Temperature Pulse Rate 69 68 Respiratory Rate Blood Pressure Blood Pressure [Right] O2 Sat by Pulse 94 93 Oximetry - Labs Labs: Abnormal Labs 06/30/20 06/30/20 07/02/20 18:46 19:06 14:45 Lactate Dehydrogenase 278 H 295 H Ur Total Protein 24 Hr 1020.00 H Urine Total Protein 34 H
--- NOTE | 2020-07-04 20:11 | Progress Note ---
Assessment and Plan - Patient Problems (1) 35 weeks gestation of Current Visit: Yes Status: Acute Plan to address problem: Will start low dose pitocin and continue induction. Questions encouraged and answered, she voiced understanding and agrees with POC (2) Pre-eclampsia added to pre-existing hypertension Onset Date: ~07/03/20 Current Visit: Yes Status: Acute (3) Advanced maternal age (AMA) in Current Visit: Yes Status: Chronic (4) HTN (hypertension) Current Visit: Yes Status: Chronic Qualifiers: Hypertension type: essential hypertension Qualified Code(s): I10 - Essential (primary) hypertension (5) BMI 45.0-49.9, adult Current Visit: Yes Status: Chronic Subjective - Subjective Date of service: 07/04/20 Principal diagnosis: IUP @ 35.4 wks, cHTN/ r/o superimposed pre e on cHTN Patient reports: movement normal, contractions, no loss of fluid, no vaginal bleeding Objective - Vital Signs Vital Signs: Vital Signs - 12hr 07/04/20 07/04/20 07/04/20 08:09 08:14 08:19 Temperature Pulse Rate 63 66 68 Respiratory Rate Blood Pressure Blood Pressure [Right] O2 Sat by Pulse 98 98 96 Oximetry 07/04/20 07/04/20 07/04/20 08:24 08:29 08:33 Temperature Pulse Rate 72 63 74 Respiratory Rate Blood Pressure Blood Pressure [Right] O2 Sat by Pulse 99 97 67 L Oximetry 07/04/20 07/04/20 07/04/20 08:34 08:39 08:44 Temperature Pulse Rate 39 L 94 H 63 Respiratory Rate Blood Pressure Blood Pressure [Right] O2 Sat by Pulse 66 L 90 98 Oximetry 07/04/20 07/04/20 07/04/20 08:49 08:54 09:00 Temperature Pulse Rate 126 H 103 H Respiratory Rate Blood Pressure Blood Pressure [Right] O2 Sat by Pulse 76 L 76 L 79 L Oximetry 07/04/20 07/04/20 07/04/20 09:37 10:39 10:45 Temperature Pulse Rate 147 H Respiratory Rate Blood Pressure Blood Pressure [Right] O2 Sat by Pulse 78 L 76 L 84 Oximetry 07/04/20 07/04/20 07/04/20 10:49 10:50 10:55 Temperature Pulse Rate 73 74 77 Respiratory Rate Blood Pressure 134/71 Blood Pressure [Right] O2 Sat by Pulse 99 99 Oximetry 07/04/20 07/04/20 07/04/20 11:00 11:05 11:10 Temperature Pulse Rate 75 66 73 Respiratory Rate Blood Pressure Blood Pressure [Right] O2 Sat by Pulse 99 97 98 Oximetry 07/04/20 07/04/20 07/04/20 11:15 11:20 11:25 Temperature Pulse Rate 72 64 64 Respiratory Rate Blood Pressure Blood Pressure [Right] O2 Sat by Pulse 98 95 96 Oximetry 07/04/20 07/04/20 07/04/20 11:30 11:35 11:39 Temperature Pulse Rate 65 66 76 Respiratory Rate Blood Pressure Blood Pressure [Right] O2 Sat by Pulse 97 99 81 L Oximetry 07/04/20 07/04/20 07/04/20 11:40 11:45 11:50 Temperature Pulse Rate 66 64 58 L Respiratory Rate Blood Pressure Blood Pressure [Right] O2 Sat by Pulse 98 96 95 Oximetry 07/04/20 07/04/20 07/04/20 11:55 12:00 12:05 Temperature Pulse Rate 76 66 59 L Respiratory Rate Blood Pressure Blood Pressure [Right] O2 Sat by Pulse 95 97 97 Oximetry 07/04/20 07/04/20 07/04/20 12:10 12:15 12:20 Temperature Pulse Rate 65 59 L 72 Respiratory Rate Blood Pressure Blood Pressure [Right] O2 Sat by Pulse 97 97 98 Oximetry 07/04/20 07/04/20 07/04/20 12:25 12:30 12:34 Temperature Pulse Rate 59 L 63 75 Respiratory Rate Blood Pressure Blood Pressure [Right] O2 Sat by Pulse 97 96 93 Oximetry 07/04/20 07/04/20 07/04/20 12:35 12:40 12:45 Temperature Pulse Rate 64 75 74 Respiratory Rate Blood Pressure Blood Pressure [Right] O2 Sat by Pulse 96 95 96 Oximetry 07/04/20 07/04/20 07/04/20 12:50 12:55 13:00 Temperature Pulse Rate 56 L 72 56 L Respiratory Rate Blood Pressure Blood Pressure [Right] O2 Sat by Pulse 97 97 96 Oximetry 07/04/20 07/04/20 07/04/20 13:05 13:10 13:15 Temperature Pulse Rate 62 65 62 Respiratory Rate Blood Pressure Blood Pressure [Right] O2 Sat by Pulse 97 98 97 Oximetry 07/04/20 07/04/20 07/04/20 13:20 13:25 13:30 Temperature Pulse Rate 68 70 75 Respiratory Rate Blood Pressure Blood Pressure [Right] O2 Sat by Pulse 97 97 99 Oximetry 07/04/20 07/04/20 07/04/20 13:35 13:40 13:45 Temperature Pulse Rate 66 70 70 Respiratory Rate Blood Pressure Blood Pressure [Right] O2 Sat by Pulse 97 98 97 Oximetry 07/04/20 07/04/20 07/04/20 13:48 13:50 13:54 Temperature Pulse Rate 73 73 67 Respiratory Rate Blood Pressure Blood Pressure [Right] O2 Sat by Pulse 94 94 94 Oximetry 07/04/20 07/04/20 07/04/20 13:55 15:16 15:17 Temperature 99.4 F Pulse Rate 75 60 63 Respiratory 18 Rate Blood Pressure Blood Pressure 137/64 [Right] O2 Sat by Pulse 98 95 Oximetry 07/04/20 07/04/20 07/04/20 15:18 15:22 15:23 Temperature Pulse Rate 60 59 L 58 L Respiratory Rate Blood Pressure 137/64 Blood Pressure [Right] O2 Sat by Pulse 95 94 Oximetry 07/04/20 07/04/20 07/04/20 15:27 15:28 15:32 Temperature Pulse Rate 63 63 60 Respiratory Rate Blood Pressure Blood Pressure [Right] O2 Sat by Pulse 94 94 94 Oximetry 07/04/20 07/04/20 07/04/20 15:36 15:37 15:41 Temperature Pulse Rate 63 63 58 L Respiratory Rate Blood Pressure Blood Pressure [Right] O2 Sat by Pulse 94 95 94 Oximetry 07/04/20 07/04/20 07/04/20 15:42 15:46 15:47 Temperature Pulse Rate 72 65 61 Respiratory Rate Blood Pressure Blood Pressure [Right] O2 Sat by Pulse 96 93 94 Oximetry 07/04/20 07/04/20 07/04/20 15:52 15:57 16:02 Temperature Pulse Rate 61 71 64 Respiratory Rate Blood Pressure Blood Pressure [Right] O2 Sat by Pulse 94 95 96 Oximetry 07/04/20 07/04/20 07/04/20 16:05 16:07 16:10 Temperature Pulse Rate 71 64 69 Respiratory Rate Blood Pressure Blood Pressure [Right] O2 Sat by Pulse 94 95 94 Oximetry 07/04/20 07/04/2007/04/20 16:12 16:17 16:22 Temperature Pulse Rate 68 75 74 Respiratory Rate Blood Pressure Blood Pressure [Right] O2 Sat by Pulse 93 96 95 Oximetry 07/04/20 07/04/20 07/04/20 16:23 16:27 16:29 Temperature Pulse Rate 69 68 79 Respiratory Rate Blood Pressure Blood Pressure [Right] O2 Sat by Pulse 94 94 94 Oximetry 07/04/20 07/04/20 07/04/20 16:32 16:34 16:37 Temperature Pulse Rate 66 78 78 Respiratory Rate Blood Pressure Blood Pressure [Right] O2 Sat by Pulse 93 93 94 Oximetry 07/04/20 07/04/20 07/04/20 16:40 16:42 16:47 Temperature Pulse Rate 66 74 72 Respiratory Rate Blood Pressure Blood Pressure [Right] O2 Sat by Pulse 94 94 97 Oximetry 07/04/20 07/04/20 07/04/20 16:48 17:00 17:05 Temperature Pulse Rate 70 70 67 Respiratory Rate Blood Pressure Blood Pressure [Right] O2 Sat by Pulse 92 97 98 Oximetry 07/04/20 07/04/20 07/04/20 17:06 17:10 17:13 Temperature Pulse Rate 67 68 70 Respiratory Rate Blood Pressure Blood Pressure [Right] O2 Sat by Pulse 92 98 92 Oximetry 07/04/20 07/04/20 07/04/20 17:15 17:19 17:20 Temperature Pulse Rate 65 67 64 Respiratory Rate Blood Pressure Blood Pressure [Right] O2 Sat by Pulse 95 94 96 Oximetry 07/04/20 07/04/20 07/04/20 17:25 17:27 17:30 Temperature Pulse Rate 69 81 79 Respiratory Rate Blood Pressure Blood Pressure [Right] O2 Sat by Pulse 95 94 98 Oximetry 07/04/20 07/04/20 07/04/20 17:33 17:35 17:40 Temperature Pulse Rate 68 85 72 Respiratory Rate Blood Pressure Blood Pressure [Right] O2 Sat by Pulse 94 99 92 Oximetry 07/04/20 07/04/20 07/04/20 17:45 17:46 17:50 Temperature Pulse Rate 74 73 67 Respiratory Rate Blood Pressure Blood Pressure [Right] O2 Sat by Pulse 96 93 94 Oximetry 07/04/20 07/04/20 07/04/20 17:53 17:55 17:59 Temperature Pulse Rate 73 75 76 Respiratory Rate Blood Pressure Blood Pressure [Right] O2 Sat by Pulse 91 95 94 Oximetry 07/04/20 07/04/20 07/04/20 18:00 18:05 18:06 Temperature Pulse Rate 73 76 76 Respiratory Rate Blood Pressure Blood Pressure [Right] O2 Sat by Pulse 95 96 94 Oximetry 07/04/20 07/04/20 07/04/20 18:10 18:14 18:15 Temperature Pulse Rate 75 68 68 Respiratory Rate Blood Pressure Blood Pressure [Right] O2 Sat by Pulse 97 93 95 Oximetry 07/04/20 07/04/20 07/04/20 18:20 18:22 18:25 Temperature Pulse Rate 76 72 75 Respiratory Rate Blood Pressure Blood Pressure [Right] O2 Sat by Pulse 96 94 97 Oximetry 07/04/20 07/04/20 07/04/20 18:28 18:30 18:34 Temperature Pulse Rate 75 72 81 Respiratory Rate Blood Pressure Blood Pressure [Right] O2 Sat by Pulse 94 97 93 Oximetry 07/04/20 07/04/20 07/04/20 18:35 18:40 18:42 Temperature Pulse Rate 74 76 79 Respiratory Rate Blood Pressure Blood Pressure [Right] O2 Sat by Pulse 97 96 94 Oximetry 07/04/20 07/04/20 07/04/20 18:45 18:48 18:50 Temperature Pulse Rate 82 78 87 Respiratory Rate Blood Pressure Blood Pressure [Right] O2 Sat by Pulse 97 94 97 Oximetry 07/04/20 07/04/20 07/04/20 18:55 19:00 19:03 Temperature Pulse Rate 78 82 77 Respiratory Rate Blood Pressure Blood Pressure [Right] O2 Sat by Pulse 96 97 94 Oximetry 07/04/20 07/04/20 07/04/20 19:05 19:10 19:15 Temperature Pulse Rate 74 74 75 Respiratory Rate Blood Pressure Blood Pressure [Right] O2 Sat by Pulse 95 95 98 Oximetry 07/04/20 07/04/20 07/04/20 19:17 19:20 19:22 Temperature Pulse Rate 72 69 70 Respiratory Rate Blood Pressure Blood Pressure [Right] O2 Sat by Pulse 93 95 94 Oximetry 07/04/20 07/04/20 07/04/20 19:25 19:50 19:55 Temperature Pulse Rate 74 86 82 Respiratory Rate Blood Pressure Blood Pressure [Right] O2 Sat by Pulse 95 96 97 Oximetry 07/04/20 20:00 Temperature Pulse Rate 74 Respiratory Rate Blood Pressure Blood Pressure [Right] O2 Sat by Pulse 97 Oximetry - Exam Lungs: Normal air movement Abdomen: Present: soft Vulva: both: normal Uterus: Absent: tenderness FHR: category 2 Uterine Contraction Monitor Mode: External Cervical Dilatation: 1 Cervical Effacement Percentage: 50 station: -3 Uterine Contraction Pattern: Irregular - Labs Labs: Abnormal Labs 06/30/20 06/30/20 07/02/20 18:46 19:06 14:45 Lactate Dehydrogenase 278 H 295 H Ur Total Protein 24 Hr 1020.00 H Urine Total Protein 34 H
[2020-07-04] MEDS ORDERED: OXYTOCIN DRIP 30 UNITS/500 ML BAG IV SCH (21:00)
[2020-07-05] MEDS ORDERED: diphenhydrAMINE 50 MG/ML VIAL IV PRN (04:13)
[2020-07-05] MEDS ORDERED: NALOXONE 2 MG/2 ML INJ IV PRN (04:13)
[2020-07-05] MEDS ORDERED: NalbUPHINE 10 MG/1 ML INJ IV PRN (04:13)
[2020-07-05] MEDS ORDERED: ONDANSETRON 4 MG/2 ML INJ IV PRN (04:13)
--- NOTE | 2020-07-05 04:15 | Anesthesia Consultation ---
Anesthesia Consult and Med Hx Date of service: 07/05/20 - Airway Anesthetic Teeth Evaluation: Good ROM Head & Neck: Adequate Mental/Hyoid Distance: Adequate Mallampati Class: Class IV Intubation Access Assessment: Possibly Difficult - Pulmonary Exam CTA: Yes - Cardiac Exam Cardiac Exam: RRR - Pre-Operative Health Status ASA Pre-Surgery Classification: ASA2 Proposed Anesthetic Plan: Epidural - Pulmonary Hx Smoking: No Hx Asthma: No Hx Sleep Apnea: No - Cardiovascular System Hx Hypertension: No Hx Heart Attack/AMI: No - Central Nervous System Hx Seizures: No Hx Psychiatric Problems: No - Gastrointestinal Hx Gastroesophageal Reflux Disease: No - Endocrine Hx Renal Disease: No Hx Insulin Dependent Diabetes: No Hx Non-Insulin Dependent Diabetes: No Hx Hypothyroidism: No Hx Hyperthyroidism: No - Hematic Hx Anemia: No Hx Sickle Cell Disease: No - Other Systems Hx Alcohol Use: No Hx Obesity: Yes
--- NOTE | 2020-07-05 04:17 | Progress Note ---
Labor Epidural - Labor Epidural Start Time: 03:30 Stop Time: 03:40 Performed by:: ELLIS DE LA CRUZ Procedure: Patient is requesting a laboring epidural for laboring pain. Patient IDed, H&P reviewed, all questions and concerns were answered, and consent was signed. Timeout was performed at bedside. Patient in sitting position. Sterile prep and drape was performed. 3ml of 1% lidocaine skin wheal at L[3]- L [4]. 18- gauge Touhy epidural needle was advanced unsuccessfully. 3ml of 1% lidocaine skin wheal at L[2]- L [3]. 18-gauge Touhy epidural needle was advanced to loss of resistance with air technique. Negative CSF negative blood. Epidural catheter advanced to [17] centimeters. [-] Aspiration [-] test dose. Sterile dressing applied. Patient tolerated procedure.
[2020-07-05] MEDS ORDERED: fentaNYL-BUPIV 2 MCG/ML-0.125% 200 MCG/100 ML BAG EPIDURAL SCH (05:00)
[2020-07-05] MEDS ORDERED: MAGNESIUM SULFATE 4 GM/100 ML BAG IV ONE (06:58)
[2020-07-05] MEDS ORDERED: MAGNESIUM SULFATE 40GM/1000ML 40 GM/1,000 ML BAG IV SCH (07:00)
[2020-07-05] MEDS ORDERED: ePHEDrine SULFATE 50 MG/1 ML INJ IV PRN (07:00)
[2020-07-05] MEDS ORDERED: MINERAL OIL 30 ML ORAL LIQD PO PRN (07:00)
[2020-07-05] MEDS ORDERED: AMPICILLIN/NS 2 GM/100 ML 2 GM/100 ML BAG IV ONE (07:00)
[2020-07-05] MEDS ORDERED: TERBUTALINE 1 MG/1 ML INJ SUB-Q PRN (07:00)
--- NOTE | 2020-07-05 07:03 | Progress Note ---
Assessment and Plan - Patient Problems (1) 35 weeks gestation of Current Visit: Yes Status: Acute (2) Pre-eclampsia added to pre-existing hypertension Onset Date: ~07/03/20 Current Visit: Yes Status: Acute Plan to address problem: Start MgSO4 and Ampicillin (3) Advanced maternal age (AMA) in Current Visit: Yes Status: Chronic (4) HTN (hypertension) Current Visit: Yes Status: Chronic Qualifiers: Hypertension type: essential hypertension Qualified Code(s): I10 - Essential (primary) hypertension (5) BMI 45.0-49.9, adult Current Visit: Yes Status: Chronic Subjective - Subjective Date of service: 07/05/20 Principal diagnosis: IUP @ 35.4 wks, cHTN/ r/o superimposed pre e on cHTN Patient reports: movement normal, contractions, no loss of fluid, no vaginal bleeding Objective - Vital Signs Vital Signs: Vital Signs - 12hr 07/04/20 07/04/20 07/04/20 19:03 19:05 19:10 Temperature Pulse Rate 77 74 74 Respiratory Rate Blood Pressure O2 Sat by Pulse 94 95 95 Oximetry 07/04/20 07/04/20 07/04/20 19:15 19:17 19:20 Temperature Pulse Rate 75 72 69 Respiratory Rate Blood Pressure O2 Sat by Pulse 98 93 95 Oximetry 07/04/20 07/04/20 07/04/20 19:22 19:25 19:50 Temperature Pulse Rate 70 74 86 Respiratory Rate Blood Pressure O2 Sat by Pulse 94 95 96 Oximetry 07/04/20 07/04/20 07/04/20 19:55 20:00 20:05 Temperature 98.2 F Pulse Rate 82 74 74 Respiratory 18 Rate Blood Pressure O2 Sat by Pulse 97 97 96 Oximetry 07/04/20 07/04/20 07/04/20 20:08 20:10 20:15 Temperature Pulse Rate 74 73 72 Respiratory Rate Blood Pressure O2 Sat by Pulse 92 93 90 Oximetry 07/04/20 07/04/20 07/04/20 20:20 20:25 20:26 Temperature Pulse Rate 73 77 77 Respiratory Rate Blood Pressure O2 Sat by Pulse 92 91 94 Oximetry 07/04/20 07/04/20 07/04/20 20:30 20:31 20:35 Temperature Pulse Rate 72 71 66 Respiratory Rate Blood Pressure O2 Sat by Pulse 93 93 93 Oximetry 07/04/20 07/04/20 07/04/20 20:39 20:40 20:45 Temperature Pulse Rate 70 66 71 Respiratory Rate Blood Pressure O2 Sat by Pulse 94 95 93 Oximetry 07/04/20 07/04/20 07/04/20 20:50 20:51 20:55 Temperature Pulse Rate 66 74 70 Respiratory Rate Blood Pressure O2 Sat by Pulse 94 93 94 Oximetry 07/04/20 07/04/20 07/04/20 20:57 21:00 21:02 Temperature Pulse Rate 75 75 67 Respiratory Rate Blood Pressure O2 Sat by Pulse 94 99 93 Oximetry 07/04/20 07/04/20 07/04/20 21:05 21:08 21:10 Temperature Pulse Rate 65 74 67 Respiratory 16 Rate Blood Pressure O2 Sat by Pulse 94 93 94 Oximetry 07/04/20 07/04/20 07/04/20 21:14 21:15 21:20 Temperature Pulse Rate 68 77 78 Respiratory Rate Blood Pressure O2 Sat by Pulse 93 97 98 Oximetry 07/04/20 07/04/20 07/04/20 21:21 21:25 21:27 Temperature Pulse Rate 72 78 70 Respiratory Rate Blood Pressure O2 Sat by Pulse 94 91 93 Oximetry 07/04/20 07/04/20 07/04/20 21:30 21:33 21:35 Temperature Pulse Rate 77 77 65 Respiratory Rate Blood Pressure O2 Sat by Pulse 97 93 94 Oximetry 07/04/20 07/04/20 07/04/20 21:40 21:45 21:46 Temperature Pulse Rate 68 73 72 Respiratory Rate Blood Pressure O2 Sat by Pulse 95 95 92 Oximetry 07/04/20 07/04/20 07/04/20 21:50 21:52 21:55 Temperature Pulse Rate 78 77 79 Respiratory Rate Blood Pressure O2 Sat by Pulse 97 93 97 Oximetry 07/04/20 07/04/20 07/04/20 21:58 22:00 22:13 Temperature Pulse Rate 79 85 77 Respiratory Rate Blood Pressure O2 Sat by Pulse 93 97 98 Oximetry 07/04/20 07/04/20 07/04/20 22:15 22:18 22:21 Temperature Pulse Rate 71 76 81 Respiratory Rate Blood Pressure O2 Sat by Pulse 94 97 93 Oximetry 07/04/20 07/04/20 07/04/20 22:23 22:26 22:28 Temperature Pulse Rate 76 82 84 Respiratory Rate Blood Pressure O2 Sat by Pulse 93 94 98 Oximetry 07/04/20 07/04/20 07/04/20 22:32 22:33 22:38 Temperature Pulse Rate 82 81 77 Respiratory Rate Blood Pressure O2 Sat by Pulse 94 93 93 Oximetry 07/04/20 07/04/20 07/04/20 22:43 22:44 22:48 Temperature Pulse Rate 92 H 79 90 Respiratory Rate Blood Pressure O2 Sat by Pulse 99 94 99 Oximetry 07/04/20 07/04/20 07/04/20 22:50 22:53 22:56 Temperature Pulse Rate 78 75 75 Respiratory Rate Blood Pressure O2 Sat by Pulse 94 97 93 Oximetry 07/04/20 07/04/20 07/04/20 22:58 23:03 23:06 Temperature Pulse Rate 85 81 78 Respiratory Rate Blood Pressure O2 Sat by Pulse 98 96 93 Oximetry 07/04/20 07/04/20 07/04/20 23:08 23:18 23:23 Temperature Pulse Rate 75 71 83 Respiratory Rate Blood Pressure O2 Sat by Pulse 97 94 100 Oximetry 07/04/20 07/04/20 07/04/20 23:25 23:28 23:31 Temperature Pulse Rate 74 73 76 Respiratory Rate Blood Pressure O2 Sat by Pulse 94 96 94 Oximetry 07/04/20 07/04/20 07/04/20 23:33 23:38 23:40 Temperature Pulse Rate 74 69 75 Respiratory Rate Blood Pressure O2 Sat by Pulse 93 94 93 Oximetry 07/04/20 07/04/20 07/04/20 23:42 23:43 23:44 Temperature Pulse Rate 71 73 70 Respiratory Rate Blood Pressure 168/77 155/70 O2 Sat by Pulse 96 Oximetry 07/04/20 07/04/20 07/04/20 23:46 23:48 23:52 Temperature Pulse Rate 80 77 71 Respiratory Rate Blood Pressure O2 Sat by Pulse 93 98 94 Oximetry 07/04/20 07/04/20 07/05/20 23:53 23:58 00:03 Temperature Pulse Rate 69 70 72 Respiratory Rate Blood Pressure O2 Sat by Pulse 93 92 92 Oximetry 07/05/20 07/05/20 07/05/20 00:08 00:13 00:18 Temperature Pulse Rate 66 69 71 Respiratory Rate Blood Pressure O2 Sat by Pulse 93 93 93 Oximetry 07/05/20 07/05/20 07/05/20 00:23 00:24 00:28 Temperature Pulse Rate 73 74 70 Respiratory Rate Blood Pressure O2 Sat by Pulse 95 94 94 Oximetry 07/05/20 07/05/20 07/05/20 00:31 00:33 00:37 Temperature Pulse Rate 75 75 75 Respiratory Rate Blood Pressure O2 Sat by Pulse 94 94 93 Oximetry 07/05/20 07/05/20 07/05/20 00:38 00:43 00:48 Temperature Pulse Rate 71 74 67 Respiratory Rate Blood Pressure 156/74 O2 Sat by Pulse 93 91 93 Oximetry 07/05/20 07/05/20 07/05/20 00:50 00:53 00:57 Temperature Pulse Rate 73 69 72 Respiratory Rate Blood Pressure O2 Sat by Pulse 94 94 93 Oximetry 07/05/20 07/05/20 07/05/20 00:58 01:03 01:08 Temperature Pulse Rate 72 69 75 Respiratory Rate Blood Pressure O2 Sat by Pulse 97 94 97 Oximetry 07/05/20 07/05/20 07/05/20 01:09 01:13 01:15 Temperature Pulse Rate 73 77 74 Respiratory Rate Blood Pressure O2 Sat by Pulse 94 97 91 Oximetry 07/05/20 07/05/20 07/05/20 01:18 01:21 01:23 Temperature Pulse Rate 76 74 75 Respiratory Rate Blood Pressure O2 Sat by Pulse 93 94 94 Oximetry 07/05/20 07/05/20 07/05/20 01:27 01:28 01:33 Temperature Pulse Rate 78 78 79 Respiratory Rate Blood Pressure O2 Sat by Pulse 93 97 98 Oximetry 07/05/20 07/05/20 07/05/20 01:38 01:39 01:43 Temperature Pulse Rate 80 77 69 Respiratory Rate Blood Pressure 144/63 O2 Sat by Pulse 94 94 91 Oximetry 07/05/20 07/05/20 07/05/20 01:45 01:48 01:51 Temperature Pulse Rate 76 70 76 Respiratory Rate Blood Pressure O2 Sat by Pulse 94 95 92 Oximetry 1820 07/05/20 07/05/20 01:53 01:56 01:58 Temperature Pulse Rate 74 71 76 Respiratory Rate Blood Pressure O2 Sat by Pulse 92 93 97 Oximetry 07/05/20 07/05/20 07/05/20 02:03 02:04 02:21 Temperature Pulse Rate 87 85 80 Respiratory Rate Blood Pressure O2 Sat by Pulse 93 93 96 Oximetry 07/05/20 07/05/20 07/05/20 02:23 02:26 02:28 Temperature Pulse Rate 79 77 78 Respiratory Rate Blood Pressure O2 Sat by Pulse 93 93 93 Oximetry 07/05/20 07/05/20 07/05/20 02:31 02:34 02:36 Temperature Pulse Rate 80 81 75 Respiratory Rate Blood Pressure O2 Sat by Pulse 93 92 93 Oximetry 07/05/20 07/05/20 07/05/20 02:40 02:41 02:43 Temperature Pulse Rate 74 76 77 Respiratory Rate Blood Pressure 153/72 O2 Sat by Pulse 93 92 Oximetry 07/05/20 07/05/20 07/05/20 02:46 02:51 02:52 Temperature Pulse Rate 79 90 79 Respiratory Rate Blood Pressure O2 Sat by Pulse 91 97 91 Oximetry 07/05/20 07/05/20 07/05/20 02:56 02:58 03:01 Temperature Pulse Rate 78 74 87 Respiratory Rate Blood Pressure O2 Sat by Pulse 94 94 98 Oximetry 07/05/20 07/05/20 07/05/20 03:06 03:08 03:11 Temperature Pulse Rate 81 76 71 Respiratory Rate Blood Pressure O2 Sat by Pulse 97 87 93 Oximetry 07/05/20 07/05/20 07/05/20 03:14 03:21 03:26 Temperature Pulse Rate 75 82 Respiratory Rate Blood Pressure O2 Sat by Pulse 91 77 L 98 Oximetry 07/05/20 07/05/20 07/05/20 03:31 03:36 03:41 Temperature Pulse Rate 91 H 89 87 Respiratory Rate Blood Pressure 147/74 O2 Sat by Pulse 99 99 99 Oximetry 07/05/20 07/05/20 07/05/20 03:46 03:50 03:51 Temperature Pulse Rate 89 88 85 Respiratory Rate Blood Pressure 159/74 O2 Sat by Pulse 99 99 Oximetry 07/05/20 07/05/20 07/05/20 03:55 03:56 04:00 Temperature Pulse Rate 86 85 88 Respiratory Rate Blood Pressure 168/74 172/63 O2 Sat by Pulse 99 Oximetry 07/05/20 07/05/20 07/05/20 04:01 04:06 04:11 Temperature Pulse Rate 89 81 86 Respiratory Rate Blood Pressure 170/75 O2 Sat by Pulse 98 99 99 Oximetry 07/05/20 07/05/20 07/05/20 04:12 04:13 04:15 Temperature Pulse Rate 80 78 77 Respiratory Rate Blood Pressure 150/71 119/62 O2 Sat by Pulse 93 Oximetry 07/05/20 07/05/20 07/05/20 04:16 04:21 04:26 Temperature Pulse Rate 77 81 72 Respiratory Rate Blood Pressure 144/65 O2 Sat by Pulse 96 97 95 Oximetry 07/05/20 07/05/20 07/05/20 04:27 04:30 04:31 Temperature Pulse Rate 73 72 79 Respiratory Rate Blood Pressure 131/68 118/58 O2 Sat by Pulse 95 Oximetry 07/05/20 07/05/20 07/05/20 04:33 04:36 04:37 Temperature Pulse Rate 72 69 69 Respiratory Rate Blood Pressure 121/62 O2 Sat by Pulse 94 97 Oximetry 07/05/20 07/05/20 07/05/20 04:40 04:41 04:45 Temperature Pulse Rate 68 70 71 Respiratory Rate Blood Pressure 115/60 122/65 O2 Sat by Pulse 95 Oximetry 07/05/20 07/05/20 07/05/20 04:46 04:50 04:51 Temperature Pulse Rate 71 65 65 Respiratory Rate Blood Pressure 123/63 O2 Sat by Pulse 96 94 95 Oximetry 07/05/20 07/05/20 07/05/20 04:55 04:56 05:00 Temperature 98.5 F Pulse Rate 64 64 65 Respiratory 18 Rate Blood Pressure 124/66 125/67 O2 Sat by Pulse 95 Oximetry 07/05/20 07/05/20 07/05/20 05:01 05:05 05:06 Temperature Pulse Rate 65 61 62 Respiratory Rate Blood Pressure 123/66 O2 Sat by Pulse 95 96 Oximetry 07/05/20 07/05/20 07/05/20 05:10 05:11 05:15 Temperature Pulse Rate 59 L 60 60 Respiratory Rate Blood Pressure 123/67 123/62 O2 Sat by Pulse 93 94 94 Oximetry 07/05/20 07/05/20 07/05/20 05:16 05:21 05:23 Temperature Pulse Rate 59 L 64 63 Respiratory Rate Blood Pressure O2 Sat by Pulse 96 95 94 Oximetry 07/05/20 07/05/20 07/05/20 05:26 05:31 05:35 Temperature Pulse Rate 64 63 64 Respiratory Rate Blood Pressure O2 Sat by Pulse 93 93 93 Oximetry 07/05/20 07/05/20 07/05/20 05:36 05:41 05:46 Temperature Pulse Rate 64 65 59 L Respiratory Rate Blood Pressure O2 Sat by Pulse 93 93 94 Oximetry 07/05/20 07/05/20 07/05/20 05:50 05:51 05:52 Temperature Pulse Rate 60 60 62 Respiratory Rate Blood Pressure 131/60 O2 Sat by Pulse 95 93 Oximetry 07/05/20 07/05/20 07/05/20 05:56 05:58 06:01 Temperature Pulse Rate 61 62 58 L Respiratory Rate Blood Pressure O2 Sat by Pulse 94 94 95 Oximetry 07/05/20 07/05/20 07/05/20 06:04 06:06 06:09 Temperature Pulse Rate 61 59 L 60 Respiratory Rate Blood Pressure O2 Sat by Pulse 94 95 94 Oximetry 07/05/20 07/05/20 07/05/20 06:11 06:15 06:16 Temperature Pulse Rate 61 65 66 Respiratory Rate Blood Pressure O2 Sat by Pulse 95 94 96 Oximetry 07/05/20 07/05/20 07/05/20 06:20 06:21 06:22 Temperature Pulse Rate 64 67 61 Respiratory Rate Blood Pressure 122/65 131/66 O2 Sat by Pulse 96 Oximetry 07/05/20 07/05/20 07/05/20 06:26 06:31 06:36 Temperature Pulse Rate 64 62 63 Respiratory Rate Blood Pressure O2 Sat by Pulse 96 96 96 Oximetry 07/05/20 07/05/20 07/05/20 06:41 06:46 06:51 Temperature Pulse Rate 67 63 63 Respiratory Rate Blood Pressure 136/78 O2 Sat by Pulse 95 100 100 Oximetry 07/05/20 06:56 Temperature Pulse Rate 81 Respiratory Rate Blood Pressure O2 Sat by Pulse 100 Oximetry - Exam Breasts: deferred Cardiovascular: Regular rate Lungs: Normal air movement Abdomen: Present: other (obese). Absent: tenderness Vulva: both: normal Uterus: Present: fundal height above umbilicus. Absent: tenderness FHR: category 2 FHR comments: fht's 110, no decels Uterine Contraction Monitor Mode: External Cervical Dilatation: 4 Cervical Effacement Percentage: 50 station: -2 Uterine Contraction Pattern: Irregular - Labs Labs: Abnormal Labs 06/30/20 06/30/20 07/02/20 18:46 19:06 14:45 Lactate Dehydrogenase 278 H 295 H Ur Total Protein 24 Hr 1020.00 H Urine Total Protein 34 H
--- NOTE | 2020-07-05 08:51 | Progress Note ---
Assessment and Plan A: 39 y.o. @ 35+ wks, IOL for pre e superimposed on cHTN. Cervical exam /-2. P: Will start mag, antibiotics, and Pitocin per protocol. Continue to monitor maternal BP's. Continue to monitor status through EFM. Subjective - Subjective Date of service: 07/05/20 (Pt comfortable with epidural.) Principal diagnosis: IUP @ 35 + wks, cHTN/, superimposed pre e on cHTN Patient reports: movement normal, contractions, no loss of fluid, no vaginal bleeding Objective - Vital Signs Vital Signs: Vital Signs - 12hr 07/04/20 07/04/20 07/04/20 20:55 20:57 21:00 Temperature Pulse Rate 70 75 75 Respiratory Rate Blood Pressure O2 Sat by Pulse 94 94 99 Oximetry 07/04/20 07/04/20 07/04/20 21:02 21:05 21:08 Temperature Pulse Rate 67 65 74 Respiratory 16 Rate Blood Pressure O2 Sat by Pulse 93 94 93 Oximetry 07/04/20 07/04/20 07/04/20 21:10 21:14 21:15 Temperature Pulse Rate 67 68 77 Respiratory Rate Blood Pressure O2 Sat by Pulse 94 93 97 Oximetry 07/04/20 07/04/20 07/04/20 21:20 21:21 21:25 Temperature Pulse Rate 78 72 78 Respiratory Rate Blood Pressure O2 Sat by Pulse 98 94 91 Oximetry 07/04/20 07/04/20 07/04/20 21:27 21:30 21:33 Temperature Pulse Rate 70 77 77 Respiratory Rate Blood Pressure O2 Sat by Pulse 93 97 93 Oximetry 07/04/20 07/04/20 07/04/20 21:35 21:40 21:45 Temperature Pulse Rate 65 68 73 Respiratory Rate Blood Pressure O2 Sat by Pulse 94 95 95 Oximetry 07/04/20 07/04/20 07/04/20 21:46 21:50 21:52 Temperature Pulse Rate 72 78 77 Respiratory Rate Blood Pressure O2 Sat by Pulse 92 97 93 Oximetry 07/04/20 07/04/20 07/04/20 21:55 21:58 22:00 Temperature Pulse Rate 79 79 85 Respiratory Rate Blood Pressure O2 Sat by Pulse 97 93 97 Oximetry 07/04/20 07/04/20 07/04/20 22:13 22:15 22:18 Temperature Pulse Rate 77 71 76 Respiratory Rate Blood Pressure O2 Sat by Pulse 98 94 97 Oximetry 07/04/20 07/04/20 07/04/20 22:21 22:23 22:26 Temperature Pulse Rate 81 76 82 Respiratory Rate Blood Pressure O2 Sat by Pulse 93 93 94 Oximetry 07/04/20 07/04/20 07/04/20 22:28 22:32 22:33 Temperature Pulse Rate 84 82 81 Respiratory Rate Blood Pressure O2 Sat by Pulse 98 94 93 Oximetry 07/04/20 07/04/20 07/04/20 22:38 22:43 22:44 Temperature Pulse Rate 77 92 H 79 Respiratory Rate Blood Pressure O2 Sat by Pulse 93 99 94 Oximetry 07/04/20 07/04/20 07/04/20 22:48 22:50 22:53 Temperature Pulse Rate 90 78 75 Respiratory Rate Blood Pressure O2 Sat by Pulse 99 94 97 Oximetry 07/04/20 07/04/20 07/04/20 22:56 22:58 23:03 Temperature Pulse Rate 75 85 81 Respiratory Rate Blood Pressure O2 Sat by Pulse 93 98 96 Oximetry 07/04/20 07/04/20 07/04/20 23:06 23:08 23:18 Temperature Pulse Rate 78 75 71 Respiratory Rate Blood Pressure O2 Sat by Pulse 93 97 94 Oximetry 07/04/20 07/04/20 07/04/20 23:23 23:25 23:28 Temperature Pulse Rate 83 74 73 Respiratory Rate Blood Pressure O2 Sat by Pulse 100 94 96 Oximetry 07/04/20 07/04/20 07/04/20 23:31 23:33 23:38 Temperature Pulse Rate 76 74 69 Respiratory Rate Blood Pressure O2 Sat by Pulse 94 93 94 Oximetry 07/04/20 07/04/20 07/04/20 23:40 23:42 23:43 Temperature Pulse Rate 75 71 73 Respiratory Rate Blood Pressure 168/77 O2 Sat by Pulse 93 96 Oximetry 07/04/20 07/04/20 07/04/20 23:44 23:46 23:48 Temperature Pulse Rate 70 80 77 Respiratory Rate Blood Pressure 155/70 O2 Sat by Pulse 93 98 Oximetry 07/04/20 07/04/20 07/04/20 23:52 23:53 23:58 Temperature Pulse Rate 71 69 70 Respiratory Rate Blood Pressure O2 Sat by Pulse 94 93 92 Oximetry 07/05/201820 07/05/20 00:03 00:08 00:13 Temperature Pulse Rate 72 66 69 Respiratory Rate Blood Pressure O2 Sat by Pulse 92 93 93 Oximetry 18/20 1820 07/05/20 00:18 00:23 00:24 Temperature Pulse Rate 71 73 74 Respiratory Rate Blood Pressure O2 Sat by Pulse 93 95 94 Oximetry 1820 18/20 1820 00:28 00:31 00:33 Temperature Pulse Rate 70 75 75 Respiratory Rate Blood Pressure O2 Sat by Pulse 94 94 94 Oximetry 18/20 1820 07/05/20 00:37 00:38 00:43 Temperature Pulse Rate 75 71 74 Respiratory Rate Blood Pressure 156/74 O2 Sat by Pulse 93 93 91 Oximetry 18/20 1820 07/05/20 00:48 00:50 00:53 Temperature Pulse Rate 67 73 69 Respiratory Rate Blood Pressure O2 Sat by Pulse 93 94 94 Oximetry 20 20 07/05/20 00:57 00:58 01:03 Temperature Pulse Rate 72 72 69 Respiratory Rate Blood Pressure O2 Sat by Pulse 93 97 94 Oximetry 1820 07/05/20 07/05/20 01:08 01:09 01:13 Temperature Pulse Rate 75 73 77 Respiratory Rate Blood Pressure O2 Sat by Pulse 97 94 97 Oximetry 18/20 18/20 07/05/20 01:15 01:18 01:21 Temperature Pulse Rate 74 76 74 Respiratory Rate Blood Pressure O2 Sat by Pulse 91 93 94 Oximetry 18/20 1820 07/05/20 01:23 01:27 01:28 Temperature Pulse Rate 75 78 78 Respiratory Rate Blood Pressure O2 Sat by Pulse 94 93 97 Oximetry 18/20 18/20 1820 01:33 01:38 01:39 Temperature Pulse Rate 79 80 77 Respiratory Rate Blood Pressure O2 Sat by Pulse 98 94 94 Oximetry 18/20 18/20 1820 01:43 01:45 01:48 Temperature Pulse Rate 69 76 70 Respiratory Rate Blood Pressure 144/63 O2 Sat by Pulse 91 94 95 Oximetry 18/20 18/20 07/05/20 01:51 01:53 01:56 Temperature Pulse Rate 76 74 71 Respiratory Rate Blood Pressure O2 Sat by Pulse 92 92 93 Oximetry 07/05/20 07/05/20 07/05/20 01:58 02:03 02:04 Temperature Pulse Rate 76 87 85 Respiratory Rate Blood Pressure O2 Sat by Pulse 97 93 93 Oximetry 07/05/20 07/05/20 07/05/20 02:21 02:23 02:26 Temperature Pulse Rate 80 79 77 Respiratory Rate Blood Pressure O2 Sat by Pulse 96 93 93 Oximetry 07/05/20 07/05/20 07/05/20 02:28 02:31 02:34 Temperature Pulse Rate 78 80 81 Respiratory Rate Blood Pressure O2 Sat by Pulse 93 93 92 Oximetry 07/05/20 07/05/20 07/05/20 02:36 02:40 02:41 Temperature Pulse Rate 75 74 76 Respiratory Rate Blood Pressure O2 Sat by Pulse 93 93 92 Oximetry 07/05/20 07/05/20 07/05/20 02:43 02:46 02:51 Temperature Pulse Rate 77 79 90 Respiratory Rate Blood Pressure 153/72 O2 Sat by Pulse 91 97 Oximetry 07/05/20 07/05/20 07/05/20 02:52 02:56 02:58 Temperature Pulse Rate 79 78 74 Respiratory Rate Blood Pressure O2 Sat by Pulse 91 94 94 Oximetry 07/05/20 07/05/20 07/05/20 03:01 03:06 03:08 Temperature Pulse Rate 87 81 76 Respiratory Rate Blood Pressure O2 Sat by Pulse 98 97 87 Oximetry 07/05/20 07/05/20 07/05/20 03:11 03:14 03:21 Temperature Pulse Rate 71 75 Respiratory Rate Blood Pressure O2 Sat by Pulse 93 91 77 L Oximetry 07/05/20 07/05/20 07/05/20 03:26 03:31 03:36 Temperature Pulse Rate 82 91 H 89 Respiratory Rate Blood Pressure O2 Sat by Pulse 98 99 99 Oximetry 07/05/20 07/05/20 07/05/20 03:41 03:46 03:50 Temperature Pulse Rate 87 89 88 Respiratory Rate Blood Pressure 147/74 159/74 O2 Sat by Pulse 99 99 Oximetry 07/05/20 07/05/20 07/05/20 03:51 03:55 03:56 Temperature Pulse Rate 85 86 85 Respiratory Rate Blood Pressure 168/74 O2 Sat by Pulse 99 99 Oximetry 07/05/20 07/05/20 07/05/20 04:00 04:01 04:06 Temperature Pulse Rate 88 89 81 Respiratory Rate Blood Pressure 172/63 170/75 O2 Sat by Pulse 98 99 Oximetry 07/05/20 07/05/20 07/05/20 04:11 04:12 04:13 Temperature Pulse Rate 86 80 78 Respiratory Rate Blood Pressure 150/71 O2 Sat by Pulse 99 93 Oximetry 07/05/20 07/05/20 07/05/20 04:15 04:16 04:21 Temperature Pulse Rate 77 77 81 Respiratory Rate Blood Pressure 119/62 144/65 O2 Sat by Pulse 96 97 Oximetry 07/05/20 07/05/20 07/05/20 04:26 04:27 04:30 Temperature Pulse Rate 72 73 72 Respiratory Rate Blood Pressure 131/68 118/58 O2 Sat by Pulse 95 Oximetry 07/05/20 07/05/20 07/05/20 04:31 04:33 04:36 Temperature Pulse Rate 79 72 69 Respiratory Rate Blood Pressure O2 Sat by Pulse 95 94 97 Oximetry 07/05/20 07/05/20 07/05/20 04:37 04:40 04:41 Temperature Pulse Rate 69 68 70 Respiratory Rate Blood Pressure 121/62 115/60 O2 Sat by Pulse 95 Oximetry 07/05/20 07/05/20 07/05/20 04:45 04:46 04:50 Temperature Pulse Rate 71 71 65 Respiratory Rate Blood Pressure 122/65 123/63 O2 Sat by Pulse 96 94 Oximetry 07/05/20 07/05/20 07/05/20 04:51 04:55 04:56 Temperature Pulse Rate 65 64 64 Respiratory Rate Blood Pressure 124/66 O2 Sat by Pulse 95 95 Oximetry 07/05/20 07/05/20 07/05/20 05:00 05:01 05:05 Temperature 98.5 F Pulse Rate 65 65 61 Respiratory 18 Rate Blood Pressure 125/67 123/66 O2 Sat by Pulse 95 Oximetry 07/05/20 07/05/20 07/05/20 05:06 05:10 05:11 Temperature Pulse Rate 62 59 L 60 Respiratory Rate Blood Pressure 123/67 O2 Sat by Pulse 96 93 94 Oximetry 07/05/20 07/05/20 07/05/20 05:15 05:16 05:21 Temperature Pulse Rate 60 59 L 64 Respiratory Rate Blood Pressure 123/62 O2 Sat by Pulse 94 96 95 Oximetry 07/05/20 07/05/20 07/05/20 05:23 05:26 05:31 Temperature Pulse Rate 63 64 63 Respiratory Rate Blood Pressure O2 Sat by Pulse 94 93 93 Oximetry 07/05/20 07/05/20 07/05/20 05:35 05:36 05:41 Temperature Pulse Rate 64 64 65 Respiratory Rate Blood Pressure O2 Sat by Pulse 93 93 93 Oximetry 07/05/20 07/05/20 07/05/20 05:46 05:50 05:51 Temperature Pulse Rate 59 L 60 60 Respiratory Rate Blood Pressure 131/60 O2 Sat by Pulse 94 95 Oximetry 07/05/20 07/05/20 07/05/20 05:52 05:56 05:58 Temperature Pulse Rate 62 61 62 Respiratory Rate Blood Pressure O2 Sat by Pulse 93 94 94 Oximetry 07/05/20 07/05/20 07/05/20 06:01 06:04 06:06 Temperature Pulse Rate 58 L 61 59 L Respiratory Rate Blood Pressure O2 Sat by Pulse 95 94 95 Oximetry 07/05/20 07/05/20 07/05/20 06:09 06:11 06:15 Temperature Pulse Rate 60 61 65 Respiratory Rate Blood Pressure O2 Sat by Pulse 94 95 94 Oximetry 07/05/20 07/05/20 07/05/20 06:16 06:20 06:21 Temperature Pulse Rate 66 64 67 Respiratory Rate Blood Pressure 122/65 O2 Sat by Pulse 96 96 Oximetry 07/05/20 07/05/20 07/05/20 06:22 06:26 06:31 Temperature Pulse Rate 61 64 62 Respiratory Rate Blood Pressure 131/66 O2 Sat by Pulse 96 96 Oximetry 07/05/20 07/05/20 07/05/20 06:36 06:41 06:46 Temperature Pulse Rate 63 67 63 Respiratory Rate Blood Pressure O2 Sat by Pulse 96 95 100 Oximetry 07/05/20 07/05/20 07/05/20 06:51 06:56 07:01 Temperature Pulse Rate 63 81 69 Respiratory Rate Blood Pressure 136/78 O2 Sat by Pulse 100 100 100 Oximetry 07/05/20 07/05/20 07/05/20 07:06 07:11 07:16 Temperature Pulse Rate 67 69 62 Respiratory Rate Blood Pressure O2 Sat by Pulse 100 99 99 Oximetry 07/05/20 07/05/20 07/05/20 07:20 07:21 07:26 Temperature Pulse Rate 59 L 67 68 Respiratory Rate Blood Pressure 128/66 O2 Sat by Pulse 99 100 Oximetry 07/05/20 07/05/20 07/05/20 07:31 07:36 07:41 Temperature Pulse Rate 71 71 76 Respiratory Rate Blood Pressure O2 Sat by Pulse 100 97 97 Oximetry 07/05/20 07/05/20 07/05/20 07:46 07:51 07:56 Temperature Pulse Rate 72 71 74 Respiratory Rate Blood Pressure O2 Sat by Pulse 100 100 99 Oximetry 07/05/20 07/05/20 07/05/20 08:01 08:06 08:11 Temperature Pulse Rate 72 68 66 Respiratory Rate Blood Pressure O2 Sat by Pulse 100 100 100 Oximetry 07/05/20 07/05/20 07/05/20 08:16 08:20 08:21 Temperature Pulse Rate 70 63 74 Respiratory Rate Blood Pressure 139/74 O2 Sat by Pulse 100 93 97 Oximetry 07/05/20 07/05/20 07/05/20 08:26 08:31 08:36 Temperature Pulse Rate 67 72 65 Respiratory Rate Blood Pressure O2 Sat by Pulse 99 100 98 Oximetry 07/05/20 07/05/20 07/05/20 08:41 08:46 08:47 Temperature Pulse Rate 72 72 69 Respiratory Rate Blood Pressure 132/61 O2 Sat by Pulse 97 99 Oximetry - Exam Narrative Exam: Pt denies LUNA, blurred vision, spots before her eyes, upper abdominal pain, chest pain, shortness of breath. BP ranges 120's-130's/60-70's. Breasts: deferred Cardiovascular: Regular rate Lungs: Normal air movement Abdomen: Present: normal appearance, soft Vulva: both: normal Uterus: Present: normal FHR: auscultation normal, category 1 Uterine Contraction Monitor Mode: External Cervical Dilatation: 4 Cervical Effacement Percentage: 50 station: -2 Uterine Contraction Pattern: Irregular Uterine Tone Measurement Phase: Resting Uterine Contraction Intensity: Mild Extremities: normal Deep Tendon Reflex Grade: Normal +2 - Labs Labs: Abnormal Labs 06/30/20 06/30/20 07/02/20 18:46 19:06 14:45 Lactate Dehydrogenase 278 H 295 H Ur Total Protein 24 Hr 1020.00 H Urine Total Protein 34 H
[2020-07-05] MEDS: PRENATAL VIT27-FE FUMARATE-FOLIC ACID VIT TAB PO SCH (10:22)
[2020-07-05] MEDS: NIFEdipine XL 30 MG TAB PO SCH (10:22)
[2020-07-05 10:27] LABS: Hematocrit 37.8 % (30.3-42.9); Hemoglobin 12.9 gm/dl (10.1-14.3); Mean Corpuscular HGB Conc 34 % (30-34); Mean Corpuscular Volume 92 fl (79-97); Platelet Count 217 K/mm3 (140-440); Red Blood Count 4.12 M/mm3 (3.65-5.03); Red Cell Distribution Width 13.6 % (13.2-15.2)
[2020-07-05] MEDS ORDERED: AMPICILLIN/NS 1 GM/50 ML 1 GM/50 ML BAG IV SCH (11:01)
[2020-07-05] MEDS ORDERED: METOCLOPRAMIDE 10 MG/2 ML INJ IV NR (12:34)
[2020-07-05] MEDS ORDERED: FAMOTIDINE 20 MG/2 ML INJ IV NR (12:34)
[2020-07-05] MEDS ORDERED: BICITRA ORAL LIQD 30ML PO NR (12:34)
--- NOTE | 2020-07-05 12:34 | Progress Note ---
Assessment and Plan A: 39 y.o. 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 Being prepped for P: Consents on chart for . RN taking care of patient and pharmacist in charge owner aware. Subjective - Subjective Date of service: 07/05/20 (Right hip painful, feeling vaginal pressure.) Principal diagnosis: IUP @ 35 + wks, cHTN/, superimposed pre e on cHTN Patient reports: movement normal, contractions, no loss of fluid, no vaginal bleeding Objective - Vital Signs Vital Signs: Vital Signs - 12hr 07/05/20 07/05/20 07/05/20 00:23 00:24 00:28 Temperature Pulse Rate 73 74 70 Respiratory Rate Blood Pressure O2 Sat by Pulse 95 94 94 Oximetry 07/05/20 07/05/20 07/05/20 00:31 00:33 00:37 Temperature Pulse Rate 75 75 75 Respiratory Rate Blood Pressure O2 Sat by Pulse 94 94 93 Oximetry 07/05/20 07/05/20 07/05/20 00:38 00:43 00:48 Temperature Pulse Rate 71 74 67 Respiratory Rate Blood Pressure 156/74 O2 Sat by Pulse 93 91 93 Oximetry 07/05/20 07/05/20 07/05/20 00:50 00:53 00:57 Temperature Pulse Rate 73 69 72 Respiratory Rate Blood Pressure O2 Sat by Pulse 94 94 93 Oximetry 07/05/20 07/05/20 07/05/20 00:58 01:03 01:08 Temperature Pulse Rate 72 69 75 Respiratory Rate Blood Pressure O2 Sat by Pulse 97 94 97 Oximetry 07/05/20 07/05/20 07/05/20 01:09 01:13 01:15 Temperature Pulse Rate 73 77 74 Respiratory Rate Blood Pressure O2 Sat by Pulse 94 97 91 Oximetry 07/05/20 07/05/20 07/05/20 01:18 01:21 01:23 Temperature Pulse Rate 76 74 75 Respiratory Rate Blood Pressure O2 Sat by Pulse 93 94 94 Oximetry 07/05/20 07/05/20 07/05/20 01:27 01:28 01:33 Temperature Pulse Rate 78 78 79 Respiratory Rate Blood Pressure O2 Sat by Pulse 93 97 98 Oximetry 07/05/20 07/05/20 07/05/20 01:38 01:39 01:43 Temperature Pulse Rate 80 77 69 Respiratory Rate Blood Pressure 144/63 O2 Sat by Pulse 94 94 91 Oximetry 07/05/20 07/05/20 07/05/20 01:45 01:48 01:51 Temperature Pulse Rate 76 70 76 Respiratory Rate Blood Pressure O2 Sat by Pulse 94 95 92 Oximetry 07/05/20 07/05/20 07/05/20 01:53 01:56 01:58 Temperature Pulse Rate 74 71 76 Respiratory Rate Blood Pressure O2 Sat by Pulse 92 93 97 Oximetry 07/05/20 07/05/20 07/05/20 02:03 02:04 02:21 Temperature Pulse Rate 87 85 80 Respiratory Rate Blood Pressure O2 Sat by Pulse 93 93 96 Oximetry 07/05/20 07/05/20 07/05/20 02:23 02:26 02:28 Temperature Pulse Rate 79 77 78 Respiratory Rate Blood Pressure O2 Sat by Pulse 93 93 93 Oximetry 07/05/20 07/05/20 07/05/20 02:31 02:34 02:36 Temperature Pulse Rate 80 81 75 Respiratory Rate Blood Pressure O2 Sat by Pulse 93 92 93 Oximetry 07/05/20 07/05/20 07/05/20 02:40 02:41 02:43 Temperature Pulse Rate 74 76 77 Respiratory Rate Blood Pressure 153/72 O2 Sat by Pulse 93 92 Oximetry 07/05/20 07/05/20 07/05/20 02:46 02:51 02:52 Temperature Pulse Rate 79 90 79 Respiratory Rate Blood Pressure O2 Sat by Pulse 91 97 91 Oximetry 07/05/20 07/05/20 07/05/20 02:56 02:58 03:01 Temperature Pulse Rate 78 74 87 Respiratory Rate Blood Pressure O2 Sat by Pulse 94 94 98 Oximetry 07/05/20 07/05/20 07/05/20 03:06 03:08 03:11 Temperature Pulse Rate 81 76 71 Respiratory Rate Blood Pressure O2 Sat by Pulse 97 87 93 Oximetry 07/05/20 07/05/20 07/05/20 03:14 03:21 03:26 Temperature Pulse Rate 75 82 Respiratory Rate Blood Pressure O2 Sat by Pulse 91 77 L 98 Oximetry 07/05/20 07/05/20 07/05/20 03:31 03:36 03:41 Temperature Pulse Rate 91 H 89 87 Respiratory Rate Blood Pressure 147/74 O2 Sat by Pulse 99 99 99 Oximetry 07/05/20 07/05/20 07/05/20 03:46 03:50 03:51 Temperature Pulse Rate 89 88 85 Respiratory Rate Blood Pressure 159/74 O2 Sat by Pulse 99 99 Oximetry 07/05/20 07/05/20 07/05/20 03:55 03:56 04:00 Temperature Pulse Rate 86 85 88 Respiratory Rate Blood Pressure 168/74 172/63 O2 Sat by Pulse 99 Oximetry 07/05/20 07/05/20 07/05/20 04:01 04:06 04:11 Temperature Pulse Rate 89 81 86 Respiratory Rate Blood Pressure 170/75 O2 Sat by Pulse 98 99 99 Oximetry 07/05/20 07/05/20 07/05/20 04:12 04:13 04:15 Temperature Pulse Rate 80 78 77 Respiratory Rate Blood Pressure 150/71 119/62 O2 Sat by Pulse 93 Oximetry 07/05/20 07/05/20 07/05/20 04:16 04:21 04:26 Temperature Pulse Rate 77 81 72 Respiratory Rate Blood Pressure 144/65 O2 Sat by Pulse 96 97 95 Oximetry 07/05/20 07/05/20 07/05/20 04:27 04:30 04:31 Temperature Pulse Rate 73 72 79 Respiratory Rate Blood Pressure 131/68 118/58 O2 Sat by Pulse 95 Oximetry 07/05/20 07/05/20 07/05/20 04:33 04:36 04:37 Temperature Pulse Rate 72 69 69 Respiratory Rate Blood Pressure 121/62 O2 Sat by Pulse 94 97 Oximetry 07/05/20 07/05/20 07/05/20 04:40 04:41 04:45 Temperature Pulse Rate 68 70 71 Respiratory Rate Blood Pressure 115/60 122/65 O2 Sat by Pulse 95 Oximetry 07/05/20 07/05/20 07/05/20 04:46 04:50 04:51 Temperature Pulse Rate 71 65 65 Respiratory Rate Blood Pressure 123/63 O2 Sat by Pulse 96 94 95 Oximetry 07/05/20 07/05/20 07/05/20 04:55 04:56 05:00 Temperature 98.5 F Pulse Rate 64 64 65 Respiratory 18 Rate Blood Pressure 124/66 125/67 O2 Sat by Pulse 95 Oximetry 07/05/20 07/05/20 07/05/20 05:01 05:05 05:06 Temperature Pulse Rate 65 61 62 Respiratory Rate Blood Pressure 123/66 O2 Sat by Pulse 95 96 Oximetry 07/05/20 07/05/20 07/05/20 05:10 05:11 05:15 Temperature Pulse Rate 59 L 60 60 Respiratory Rate Blood Pressure 123/67 123/62 O2 Sat by Pulse 93 94 94 Oximetry 07/05/20 07/05/20 07/05/20 05:16 05:21 05:23 Temperature Pulse Rate 59 L 64 63 Respiratory Rate Blood Pressure O2 Sat by Pulse 96 95 94 Oximetry 07/05/20 07/05/20 07/05/20 05:26 05:31 05:35 Temperature Pulse Rate 64 63 64 Respiratory Rate Blood Pressure O2 Sat by Pulse 93 93 93 Oximetry 07/05/20 07/05/20 07/05/20 05:36 05:41 05:46 Temperature Pulse Rate 64 65 59 L Respiratory Rate Blood Pressure O2 Sat by Pulse 93 93 94 Oximetry 07/05/20 07/05/20 07/05/20 05:50 05:51 05:52 Temperature Pulse Rate 60 60 62 Respiratory Rate Blood Pressure 131/60 O2 Sat by Pulse 95 93 Oximetry 07/05/20 07/05/20 07/05/20 05:56 05:58 06:01 Temperature Pulse Rate 61 62 58 L Respiratory Rate Blood Pressure O2 Sat by Pulse 94 94 95 Oximetry 07/05/20 07/05/20 07/05/20 06:04 06:06 06:09 Temperature Pulse Rate 61 59 L 60 Respiratory Rate Blood Pressure O2 Sat by Pulse 94 95 94 Oximetry 07/05/20 07/05/20 07/05/20 06:11 06:15 06:16 Temperature Pulse Rate 61 65 66 Respiratory Rate Blood Pressure O2 Sat by Pulse 95 94 96 Oximetry 07/05/20 07/05/20 07/05/20 06:20 06:21 06:22 Temperature Pulse Rate 64 67 61 Respiratory Rate Blood Pressure 122/65 131/66 O2 Sat by Pulse 96 Oximetry 07/05/20 07/05/20 07/05/20 06:26 06:31 06:36 Temperature Pulse Rate 64 62 63 Respiratory Rate Blood Pressure O2 Sat by Pulse 96 96 96 Oximetry 07/05/20 07/05/20 07/05/20 06:41 06:46 06:51 Temperature Pulse Rate 67 63 63 Respiratory Rate Blood Pressure 136/78 O2 Sat by Pulse 95 100 100 Oximetry 07/05/20 07/05/20 07/05/20 06:56 07:01 07:06 Temperature Pulse Rate 81 69 67 Respiratory Rate Blood Pressure O2 Sat by Pulse 100 100 100 Oximetry 07/05/20 07/05/20 07/05/20 07:11 07:16 07:20 Temperature Pulse Rate 69 62 59 L Respiratory Rate Blood Pressure 128/66 O2 Sat by Pulse 99 99 Oximetry 07/05/20 07/05/20 07/05/20 07:21 07:26 07:31 Temperature Pulse Rate 67 68 71 Respiratory Rate Blood Pressure O2 Sat by Pulse 99 100 100 Oximetry 07/05/20 07/05/20 07/05/20 07:36 07:41 07:46 Temperature Pulse Rate 71 76 72 Respiratory Rate Blood Pressure O2 Sat by Pulse 97 97 100 Oximetry 07/05/20 07/05/20 07/05/20 07:51 07:56 08:01 Temperature Pulse Rate 71 74 72 Respiratory Rate Blood Pressure O2 Sat by Pulse 100 99 100 Oximetry 07/05/20 07/05/20 07/05/20 08:06 08:11 08:16 Temperature Pulse Rate 68 66 70 Respiratory Rate Blood Pressure O2 Sat by Pulse 100 100 100 Oximetry 07/05/20 07/05/20 07/05/20 08:20 08:21 08:26 Temperature Pulse Rate 63 74 67 Respiratory Rate Blood Pressure 139/74 O2 Sat by Pulse 93 97 99 Oximetry 07/05/20 07/05/20 07/05/20 08:31 08:36 08:41 Temperature Pulse Rate 72 65 72 Respiratory Rate Blood Pressure O2 Sat by Pulse 100 98 97 Oximetry 07/05/20 07/05/20 07/05/20 08:46 08:47 08:51 Temperature Pulse Rate 72 69 67 Respiratory Rate Blood Pressure 132/61 O2 Sat by Pulse 99 100 Oximetry 07/05/20 07/05/20 07/05/20 08:56 09:01 09:06 Temperature Pulse Rate 62 66 66 Respiratory Rate Blood Pressure O2 Sat by Pulse 100 100 100 Oximetry 07/05/20 07/05/20 07/05/20 09:10 09:11 09:16 Temperature Pulse Rate 70 75 72 Respiratory Rate Blood Pressure 124/65 O2 Sat by Pulse 99 96 Oximetry 07/05/20 07/05/20 07/05/20 09:21 09:26 09:27 Temperature Pulse Rate 74 71 71 Respiratory Rate Blood Pressure 131/66 O2 Sat by Pulse 97 99 Oximetry 07/05/20 07/05/20 07/05/20 09:31 09:36 09:41 Temperature Pulse Rate 70 69 77 Respiratory Rate Blood Pressure 124/64 O2 Sat by Pulse 96 97 99 Oximetry 07/05/20 07/05/20 07/05/20 09:46 09:51 09:56 Temperature Pulse Rate 70 75 75 Respiratory Rate Blood Pressure O2 Sat by Pulse 100 100 99 Oximetry 07/05/20 07/05/20 07/05/20 10:01 10:06 10:11 Temperature Pulse Rate 72 66 71 Respiratory Rate Blood Pressure O2 Sat by Pulse 99 100 100 Oximetry 07/05/20 07/05/20 07/05/20 10:16 10:21 10:26 Temperature Pulse Rate 68 78 85 Respiratory Rate Blood Pressure O2 Sat by Pulse 100 100 98 Oximetry 07/05/20 07/05/20 07/05/20 10:31 10:36 10:41 Temperature Pulse Rate 86 72 78 Respiratory Rate Blood Pressure O2 Sat by Pulse 98 98 99 Oximetry 07/05/20 07/05/20 07/05/20 10:42 10:46 10:51 Temperature Pulse Rate 72 68 67 Respiratory Rate Blood Pressure 144/77 O2 Sat by Pulse 96 96 Oximetry 07/05/20 07/05/20 07/05/20 10:56 10:57 11:01 Temperature Pulse Rate 67 79 70 Respiratory Rate Blood Pressure O2 Sat by Pulse 96 91 97 Oximetry 07/05/20 07/05/20 07/05/20 11:03 11:06 11:21 Temperature Pulse Rate 72 75 71 Respiratory Rate Blood Pressure O2 Sat by Pulse 94 95 99 Oximetry 07/05/20 07/05/20 07/05/20 11:26 11:31 11:35 Temperature Pulse Rate 68 64 70 Respiratory Rate Blood Pressure O2 Sat by Pulse 99 97 94 Oximetry 07/05/20 07/05/20 07/05/20 11:36 11:41 11:43 Temperature Pulse Rate 71 66 69 Respiratory Rate Blood Pressure O2 Sat by Pulse 96 95 94 Oximetry 07/05/20 07/05/20 07/05/20 11:46 11:51 11:56 Temperature Pulse Rate 71 70 67 Respiratory Rate Blood Pressure O2 Sat by Pulse 96 99 95 Oximetry 07/05/20 07/05/20 07/05/20 11:57 12:01 12:02 Temperature Pulse Rate 66 65 65 Respiratory Rate Blood Pressure O2 Sat by Pulse 94 95 94 Oximetry 07/05/20 07/05/20 07/05/20 12:06 12:07 12:11 Temperature Pulse Rate 65 69 71 Respiratory Rate Blood Pressure 141/73 O2 Sat by Pulse 97 94 97 Oximetry 07/05/20 07/05/20 12:12 12:16 Temperature Pulse Rate 71 82 Respiratory Rate Blood Pressure O2 Sat by Pulse 91 95 Oximetry - Exam Narrative Exam: Pt states that she is feeling a lot of vaginal pressure and also has c/o right hip pain. Cervical exam remains unchanged at 4/50/-3. Discussed possibility of the need for a given inadequate feeling pelvis, pre e, and unchanged cervical exam for the last 6 hours. Will discuss patient with Dr. Alvarez. C- section consents signed and on chart, and pre op orders placed. DEVEN Carrillo aware of patient need to be prepped for . Cardiovascular: Regular rate Lungs: Normal air movement Abdomen: Present: normal appearance, soft Vulva: both: normal Uterus: Present: normal FHR: category 1 Uterine Contraction Monitor Mode: External Cervical Dilatation: 4 Cervical Effacement Percentage: 50 station: -3 Uterine Contraction Pattern: Absent Extremities: normal Deep Tendon Reflex Grade: Normal +2 - Labs Labs: Abnormal Labs 06/30/20 06/30/20 07/02/20 18:46 19:06 14:45 Lactate Dehydrogenase 278 H 295 H Ur Total Protein 24 Hr 1020.00 H Urine Total Protein 34 H Laboratory Results - last 24 hr 07/05/20 09:24 WBC 10.2 RBC 4.12 Hgb 12.9 Hct 37.8 MCV 92 MCH 31 MCHC 34 RDW 13.6 Plt Count 217
[2020-07-05] MEDS ORDERED: ceFAZolin/Water 2 GM/20 ML 2 GM/20 ML SYRINGE IV NR (13:00)
--- NOTE | 2020-07-05 13:08 | Anesthesia Day of Surgery ---
Anesthesia Day of Surgery - Day of Surgery Patient Examined: Yes Patient H&P Reviewed: Yes Patient is NPO: Yes Beta Blockers: No Cardiac Clearance: No Pulmonary Clearance: No Gilmar's Test: N/A
[2020-07-05] MEDS ORDERED: BUPIVACAINE/PF (0.5%) 5 MG/1 ML 30 ML VIAL INFILTRATI ONE (13:34)
[2020-07-05] MEDS ORDERED: ONDANSETRON 4 MG/2 ML INJ ONE (13:34)
[2020-07-05] MEDS ORDERED: KETOROLAC 30 MG/1 ML INJ ONE (13:34)
[2020-07-05] MEDS ORDERED: MORPHINE PF 10MG/10 ML AMPULE ONE (13:35)
--- NOTE | 2020-07-05 14:10 | Event Note ---
Date: 07/05/20 Pt with failure to progress with labor induction stalling at 4cm. Pelvis is contracted and d/w vaginal delivery is not likely. She desires to proceed withprimary c/s with BTL. All risk, benefits, and alternatives were d/w pt and questions were addressed and answered. Consents signed and placed on the chart.
[2020-07-05] MEDS ORDERED: ceFAZolin/STERILE WATER 2 GM/20 ML SYRINGE IV ONE (15:25)
[2020-07-05] MEDS ORDERED: SODIUM CHLORIDE 0.9% IRR 1,500 ML BOTTLE IR ONE (15:30)
[2020-07-05] MEDS ORDERED: WATER FOR IRRIG STERILE 1,500 ML BOTTLE IR ONE (15:30)
[2020-07-05] MEDS ORDERED: PROMETHAZINE 25 MG RECT SUPP PR PRN (16:09)
[2020-07-05] MEDS ORDERED: PROMETHAZINE 25 MG TAB PO PRN (16:09)
[2020-07-05] MEDS ORDERED: NALOXONE 0.4 MG/1 ML INJ IV PRN ×2 (16:09→16:36)
[2020-07-05] MEDS ORDERED: LANOLIN/ZINC/DIMETHICONE (LANSINOH) 7 GM TP PRN (16:36)
[2020-07-05] MEDS ORDERED: WITCH HAZEL/ GLYCERIN PAD TP PRN (16:36)
--- NOTE | 2020-07-05 16:40 | Operative Report ---
Operative Report Operative Report: Date of procedure: 07/05/2020 Pre-operative diagnosis: 35 weeks gestation Chronic hypertension Superimposed preeclampsia Morbid obesity Failure to progress Suspected CPD Desires permanent sterilization Post-operative diagnosis: Same Procedure name(s): Primary low transverse section via Pfannenstiel skin incision Bilateral salpingectomy Surgeon: Dr. Alvarez Liability Claims Adjuster: CAM Anesthesia: Epidural EBL: 700 mL Urine output: 150 mL of clear urine out at end of procedure Fluids: 1400 mL Findings: Liveborn female Apgars of 8 and 9 at 1 and 5 minutes weight 5 pounds 3 ounces Normal fallopian tubes and ovaries bilaterally Normal uterus 1 cm anterior fundal fibroid Indications: Patient admitted for evaluation due to elevation in blood pressure was noted to have severe preeclampsia superimposed on chronic hypertension. Patient underwent several days of induction with progression of cervix only to approximately 4 cm with adequate contractions noted. Discussion was had with patient regarding cephalopelvic disproportion and arrest of labor. Patient desired to proceed with primary section and bilateral sterilization. All risks benefits and alternatives were discussed with the patient. Consents were signed and placed on the chart. Procedure: Patient was taking to the operating room. Patient was then prepped and draped in sterile fashion after anesthesia was found to be adequate. A low transverse skin incision was made with the scalpel and carried down to the underlying layer of fascia with the Bovie. The fascia was then incised in the midline and this incision was extended bilaterally with the Bovie. The superior aspect of the fascia was grasped with Iraida clamps tented upward and dissected off of the anterior rectus muscles with the scalpel. In similar fashion the inferior aspect of the fascia was grasped with Iraida clamps tented upward and dissected off of the anterior rectus muscles. The rectus muscles were then bluntly divided in the midline. The peritoneum was identified and entered into sharply. The bladder blade was placed. The the extra-large Praveen retractor was placed.. A lower transverse uterine incision was made with the scalpel and extended bilaterally with the bandage scissors. Artificial rupture of membranes was performed yielding [clear amniotic fluid]. The infant's head was then delivered atraumatically. The anterior shoulder and rest of delivered without difficulty. The umbilical cord was clamped x2. The cord was cut. The was then placed in sterile bassinet. [The cord blood was collected.] The placenta was manually extracted in its entirety. The uterus was exteriorized and cleared of all clots and debris. The uterine incision was closed using 0 Vicryl in a running locking fashion. A second imbricating layer of the same suture was then created. Attention was then turned to the right fallopian tube which was then cauterized and transected with excellent hemostasis noted. This was repeated on the left side with portions of left and right to handed off to pathology. The posterior cul-de-sac was copiously irrigated. The uterus was returned to the abdomen. The gutters were also irrigated. The Praveen retractor was removed from the abdomen. The anterior rectus muscles were reapproximated using 3-0 Vicryl. The anterior rectus fascia was reapproximated using 0 Vicryl in a running fashion. The subcuticular fat was reapproximated using 2-0 Vicryl in a running fashion. The skin was reapproximated with 4-0 Monocryl in a subcuticular stitch. The patient tolerated the procedure well. Sponge lap and needle counts were all correct x3. Patient was taken to the recovery room awake and in stable condition.
[2020-07-05] MEDS: ceFAZolin/NS 1 GM/50 ML 1 GM/50 ML BAG IV SCH (20:43)
[2020-07-05] MEDS: KETOROLAC 30 MG/1 ML INJ IV PRN (23:27)
[2020-07-06] MEDS: ceFAZolin/NS 1 GM/50 ML 1 GM/50 ML BAG IV SCH (04:56)
[2020-07-06] MEDS: LACTATED RINGERS 1,000 ML IV SCH ×2 (04:59→15:47)
[2020-07-06] MEDS: KETOROLAC 30 MG/1 ML INJ IV PRN (05:59)
[2020-07-06] MEDS ORDERED: DIPHtheria,PERTUSSIS(ACELL),TETANUS VACCINE/PF 0.5 ML VIAL IM ONE (06:00)
[2020-07-06 07:16] LABS: Hematocrit 31.9 % (30.3-42.9); Hemoglobin 11.4 gm/dl (10.1-14.3)
[2020-07-06] MEDS: IBUPROFEN 800 MG TAB PO PRN ×2 (08:36→14:44)
[2020-07-06] MEDS: NIFEdipine XL 30 MG TAB PO SCH (08:37)
--- NOTE | 2020-07-06 09:36 | Progress Note ---
Assessment and Plan Pt sitting on side of bed ingesting clear liquids. No visible s/s of distress. Reports pain well managed with current medication regimen. BP within last 24hrs ranging 130-160/60-80 with recent BP 135/72 at 0700. VSSAF. Post-op H/H . Fundus firm at umbilicus. Light bleeding seen. ABD dressing clean, dry, and intact. RN to remove this afternoon or tomorrow. Vega to BS with clear urine and adequate UO. MagSO4 infusing x 24hrs PP for pre-E. Recent Mag level 4.00 at 0630. in NICU. Pt is not currently . BTL w/ salpingectomy with C/S. P: Will d/c Mag at 1640 today, continue Procardia 30 XL PO q day, and monitor BP. - Patient Problems (1) delivery delivered Current Visit: Yes Status: Acute (2) Pre-eclampsia added to pre-existing hypertension Onset Date: ~07/03/20 Current Visit: Yes Status: Acute Subjective - Subjective Date of service: 07/06/20 Principal diagnosis: POD#1 s/p primary C/S with BTL d/t pre-E Patient reports: appetite normal, voiding normally (vega in place to BS), pain well controlled : in NICU Objective - Vital Signs Latest vital signs: Vital Signs Temp Pulse Resp BP BP Pulse Ox 07/06/20 07:30 98.4 F 07/06/20 07:13 80 135/72 07/06/20 06:23 18 07/06/20 06:04 83 150/77 07/06/20 06:03 84 166/84 07/06/20 06:00 67 18 150/77 99 07/06/20 05:59 18 07/06/20 04:57 66 162/75 07/06/20 04:27 67 173/76 07/06/20 04:07 98.4 F 72 18 147/70 98 07/06/20 04:00 67 150/72 07/06/20 03:59 69 147/70 07/06/20 02:49 63 96 07/06/20 02:44 64 96 07/06/20 02:39 63 96 07/06/20 02:34 63 97 07/06/20 02:29 67 98 07/06/20 02:24 70 97 07/06/20 02:23 84 07/06/20 02:17 69 18 139/73 99 07/06/20 02:16 51 L 33 L 07/06/20 02:11 65 94 07/06/20 02:07 64 139/73 07/06/20 02:06 94 H 74 L 07/06/20 01:53 78 L 07/06/20 01:38 74 L 07/06/20 01:13 50 L 79 L 07/06/20 01:06 82 L 07/06/20 00:55 104 H 89 07/06/20 00:54 74 82 L 07/06/20 00:49 100 H 69 L 07/06/20 00:46 81 L 07/06/20 00:43 101 H 84 07/06/20 00:40 68 L 07/06/20 00:35 98 H 73 L 07/06/20 00:29 100 H 87 07/06/20 00:25 102 H 84 07/06/20 00:24 102 H 84 07/06/20 00:19 90 07/06/20 00:00 98.2 F 72 18 142/69 98 07/05/20 23:57 18 07/05/20 23:54 79 L 07/05/20 23:48 82 L 07/05/20 23:42 79 L 07/05/20 23:39 59 L 0 L 07/05/20 23:36 99 H 84 07/05/20 23:34 68 87 07/05/20 23:31 98 H 79 L 07/05/20 23:27 18 07/05/20 23:25 78 L 07/05/20 23:19 87 73 L 07/05/20 23:08 65 87 07/05/20 23:03 80 L 07/05/20 22:57 51 L 81 L 07/05/20 22:48 71 77 L 07/05/20 22:47 78 L 07/05/20 22:41 83 L 07/05/20 22:36 70 L 07/05/20 22:30 70 L 07/05/20 22:28 44 L 67 L 07/05/20 22:23 66 87 07/05/20 22:18 68 L 07/05/20 22:15 65 93 07/05/20 22:13 65 88 11/18/20 22:10 72 98 11/18/20 22:05 64 94 11/18/20 22:00 61 93 11/18/20 21:57 63 139/63 11/18/20 21:55 78 92 11/18/20 21:54 65 93 11/18/20 21:50 61 95 11/18/20 21:47 66 92 11/18/20 21:45 62 94 11/18/20 21:40 61 94 11/18/20 21:35 67 93 11/18/20 21:30 62 94 11/18/20 21:27 61 134/59 11/18/20 21:25 67 97 11/18/20 21:23 64 94 11/18/20 21:20 64 97 /18/20 21:16 62 94 11/18/20 21:15 59 L 95 11/18/20 21:11 65 94 11/18/20 21:10 67 96 11/18/20 21:05 65 96 11/18/20 21:03 68 93 18/20 21:00 72 97 11/18/20 20:57 66 135/62 11/18/20 20:55 67 97 11/18/20 20:50 73 97 11/18/20 20:45 66 98 11/18/20 20:40 70 98 11/18/20 20:35 64 95 11/18/20 20:33 66 93 11/18/20 20:30 98.6 F 75 20 157/78 98 11/18/20 20:27 76 157/78 11/18/20 20:25 74 95 11/18/20 20:20 74 95 11/18/20 20:15 68 97 11/18/20 20:10 72 97 11/18/20 20:09 81 94 11/18/20 20:05 76 95 11/18/20 20:03 78 94 11/18/20 20:00 73 96 11/18/20 19:57 75 130/61 94 11/18/20 19:55 75 95 11/18/20 19:50 74 97 11/18/20 19:45 74 97 11/18/20 19:40 78 96 11/18/20 19:39 85 94 11/18/20 19:35 74 98 11/18/20 19:30 74 94 11/18/20 19:27 70 145/67 18/20 19:25 72 94 18/20 19:23 72 94 18/20 19:20 79 97 18/20 19:15 71 97 18/20 19:10 77 97 18/20 19:05 74 97 18/20 19:00 75 98 18/20 18:57 75 144/70 18/20 18:55 76 98 18/20 18:50 73 97 18/20 18:45 74 96 18/20 18:40 76 97 18/20 18:35 74 96 18/20 18:30 76 97 18/20 18:25 76 97 18/20 18:20 71 96 18/20 18:18 78 94 18/20 18:15 85 96 07/05/20 18:12 75 94 18/20 18:10 79 97 18/20 18:09 74 143/72 18/20 17:45 67 15 145/75 100 18/20 17:43 98.6 F 64 16 145/73 100 18/20 17:30 63 16 148/80 100 18/20 17:15 60 18 144/76 100 18/20 17:00 64 16 153/82 100 18/20 16:50 62 17 147/81 98 18/20 16:45 98.3 F 63 16 134/70 98 18/20 15:09 67 99 18/20 15:04 71 98 18/20 14:59 79 97 18/20 14:58 94 H 94 18/20 14:54 74 98 18/20 14:49 77 98 18/20 14:48 77 135/71 18/20 14:44 82 98 18/20 14:39 72 97 18/20 14:34 74 96 18/20 14:29 80 99 18/20 14:23 85 96 18/20 14:18 90 99 18/20 14:13 74 97 18/20 14:08 74 98 18/20 14:03 84 99 18/20 14:02 90 91 07/05/20 13:58 80 98 07/05/20 13:53 76 97 07/05/20 13:48 73 99 07/05/20 13:43 68 95 20 13:42 68 94 20 13:41 65 136/63 20 13:38 74 98 07/05/20 13:33 71 97 07/05/20 13:30 81 134/61 20 13:28 71 97 07/05/20 13:23 71 97 07/05/20 13:20 72 0 L 07/05/20 13:18 74 97 07/05/20 13:14 69 93 07/05/20 13:13 70 96 07/05/20 13:08 72 95 07/05/20 13:04 72 93 07/05/20 13:03 71 96 07/05/20 12:58 74 96 07/05/20 12:53 72 96 07/05/20 12:48 76 97 07/05/20 12:47 84 94 07/05/20 12:43 81 94 20 12:42 71 142/67 07/05/20 12:40 52 L 89 07/05/20 12:38 79 96 07/05/20 12:16 82 95 07/05/20 12:12 71 91 07/05/20 12:11 71 97 07/05/20 12:07 69 94 07/05/20 12:06 65 141/73 97 07/05/20 12:02 65 94 07/05/20 12:01 65 95 07/05/20 11:57 66 94 20 11:56 67 95 20 11:51 70 99 07/05/20 11:46 71 96 20 11:43 69 94 20 11:41 66 95 07/05/20 11:36 71 96 07/05/20 11:35 70 94 07/05/20 11:31 64 97 18/20 11:26 68 99 07/05/20 11:21 71 99 07/05/20 11:06 75 95 07/05/20 11:03 72 94 07/05/20 11:01 70 97 20 10:57 79 91 11/18/20 10:56 67 96 07/05/20 10:51 67 96 07/05/20 10:46 68 96 07/05/20 10:42 72 144/77 07/05/20 10:41 78 99 07/05/20 10:36 72 98 07/05/20 10:31 86 98 07/05/20 10:26 85 98 07/05/20 10:21 78 100 07/05/20 10:16 68 100 07/05/20 10:11 71 100 07/05/20 10:06 66 100 07/05/20 10:01 72 99 07/05/20 09:56 75 99 07/05/20 09:51 75 100 07/05/20 09:46 70 100 07/05/20 09:41 77 124/64 99 07/05/20 09:36 69 97 07/05/20 09:31 70 96 07/05/20 09:27 71 131/66 07/05/20 09:26 71 99 Intake and Output 07/05/20 07/06/20 07/06/20 22:59 06:59 14:59 Intake Total 1930 480 Output Total 400 1550 Balance 1530 -1070 Intake: IV 1450 ANCEF/NS 1 GM/50 ML 1 gm 50 In 50 ml @ 100 mls/hr IV Q8H [facility] Rx#:[id number] Oral 480 480 Output: Urine 400 1550 Indwelling Catheter 250 1550 Other: Total, Intake Amount 480 240 Total, Output Amount 250 550 Estimated Blood Loss 700 - Exam Breasts: Present: deferred Cardiovascular: Present: Regular rate, Normal S1, Normal S2 Lungs: Present: Clear to auscultation, Normal air movement Abdomen: Present: normal appearance, soft, normal bowel sounds Uterus: Present: normal, firm, fundal height at umbilicus Extremities: Present: normal Deep Tendon Reflex Grade: Normal +2 Incision: Present: normal, dry, intact, dressed - Labs Labs: Abnormal lab results 07/05/20 07/06/20 07/06/20 Range/Units 19:36 01:09 06:28 Magnesium 3.90 H 4.20 H 4.00 H (1.7-2.3) mg/dL
--- NOTE | 2020-07-06 11:04 | Post Anesthesia Evaluation ---
- Post Anesthesia Evaluation Patient Participated: Yes Airway Patent: Yes Stable Respiratory Function: Yes Nausea/Vomiting: No Temp > 96.8F: Yes Pain Manageable: Yes Adequeate Hydration: Yes Anesthesia Complications: No Block Receding Appropriately: Yes Patient on Ventilator: No
[2020-07-06] MEDS: HYDROcodone/ACETAMINOPHEN 5-325 MG TAB PO PRN ×2 (15:20→21:05)
[2020-07-07] MEDS: IBUPROFEN 800 MG TAB PO PRN ×2 (00:59→15:12)
[2020-07-07] MEDS: HYDROcodone/ACETAMINOPHEN 5-325 MG TAB PO PRN ×2 (04:25→12:27)
--- NOTE | 2020-07-07 08:39 | Progress Note ---
Assessment and Plan A: 39 y.o. s/p primary , POD #2, s/p Mag Infusion. BP ranges 140's/70's. P: Continue with care. Continue to monitor blood pressures. Anticipate discharge home on 07/08. Subjective - Subjective Date of service: 07/07/20 (Pt up ambulating, doing well) Principal diagnosis: POD#2 s/p primary C/S with BTL d/t pre-E, s/p Mag infusion Patient reports: appetite normal, pain well controlled, flatus, ambulating normally [place]: doing well Objective - Vital Signs Latest vital signs: Vital Signs Temp Pulse Resp BP BP Pulse Ox 07/07/20 04:25 18 07/07/20 01:59 18 07/07/20 01:35 99.1 F 75 18 142/77 95 07/07/20 00:59 18 07/06/20 22:05 18 07/06/20 21:08 98.6 F 78 18 148/75 99 07/06/20 21:05 18 07/06/20 19:58 116 H 84 07/06/20 19:53 146 H 90 07/06/20 19:48 104 H 92 07/06/20 19:47 91 07/06/20 19:42 149 H 93 07/06/20 19:41 64 75 L 07/06/20 19:36 81 L 07/06/20 19:35 79 97 07/06/20 19:30 80 97 07/06/20 19:26 78 146/67 07/06/20 19:25 79 94 07/06/20 19:24 99.3 F 78 18 146/67 98 07/06/20 17:56 99.0 F 164/79 07/06/20 17:50 73 164/79 07/06/20 15:20 18 07/06/20 14:49 71 165/81 07/06/20 14:40 65 191/104 07/06/20 14:36 98.5 F Intake and Output 07/06/20 07/07/20 07/07/20 22:59 06:59 14:59 Intake Total 480 240 Output Total 600 1000 Balance -120 -760 Intake: Oral 480 240 Output: Urine 600 1000 Void 600 1000 Other: Total, Intake Amount 480 240 Total, Output Amount 600 600 - Exam Breasts: Present: deferred Cardiovascular: Present: Regular rate Lungs: Present: Normal air movement Abdomen: Present: normal appearance, soft Vulva: both: normal Uterus: Present: normal Extremities: Present: edema (+1 to lower extermities) Deep Tendon Reflex Grade: Normal +2 Incision: Present: normal, dry, intact, dressed (Dressing intact, no drainage on dressing noted. ) - Labs Labs: Abnormal lab results 07/06/20 Range/Units 16:48 Magnesium 4.00 H (1.7-2.3) mg/dL
[2020-07-07] MEDS: NIFEdipine XL 30 MG TAB PO SCH (12:29)
[2020-07-07] MEDS: PRENATAL VIT27-FE FUMARATE-FOLIC ACID VIT TAB PO SCH (12:30)
[2020-07-08] MEDS: HYDROcodone/ACETAMINOPHEN 5-325 MG TAB PO PRN (01:06)
[2020-07-08] MEDS: IBUPROFEN 800 MG TAB PO PRN (08:46)
--- NOTE | 2020-07-08 09:07 | Discharge Summary ---
Providers - Providers Date of Admission: 06/30/20 18:49 Date of discharge: 07/08/20 Attending physician: BIANKA HOOVER 07/02/20 07:00 Consult to Physician [CONS] Routine Comment: Consulting Provider: SERA RUDD Physician Instructions: Reason For Exam: IUP@35 weeks CHTNwith Preeclampsia 07/02/20 13:00 Consult to Physician [CONS] Routine Comment: Consulting Provider: GOSIA GOLDSTEIN Physician Instructions: Reason For Exam: PreEclampsia, induction of labor Primary care physician: BIANKA HOOVER Hospitalization Reason for admission: other (superimposed pre E) Delivery: Procedure: section, bilateral tubal ligation Procedure details: see op note complications: none [place] baby: female Hospital course: Pt admitted and dx'd with super imposed pre E on CHTN. s/p arrest of labor at 4cm and underwent c/s that was not comlicated. She got MgSO4 both during labor and after the delivery x 24 hrs. Blood pressures are at her baseline prior to admission at this time. Will d/c home on bp meds and f/u in office in one week for evaluation. All questions were addressed and answered. Condition at discharge: Good Disposition: DC-01 TO HOME OR SELFCARE Plan - Discharge Medications Prescriptions: Ibuprofen [Motrin 800 MG tab] 800 mg PO Q8HR PRN #30 tablet PRN Reason: Pain, Moderate (4-6) oxyCODONE /ACETAMINOPHEN [Percocet 5/325] 1 tab PO Q4HR #30 tab - Provider Discharge Summary Activity: routine, no sex for 6 weeks, no heavy lifting 4 weeks Diet: routine Instructions: routine Additional instructions: [] Smoking cessation referral if applicable(refer to patient education folder for contact #) [] Refer to [facility] Booklet Call your doctor immediately for: * Fever > 100.5 * Heavy vaginal bleeding ( >1 pad per hour) * Severe persistent headache * Shortness of breath * Reddened, hot, painful area to leg or breast * Drainage or odor from incision. * Keep incision clean and dry at all times and follow doctor's instructions regarding bathing/showering - Follow up plan Follow up: BIANKA HOOVER MD [Primary Care Provider] - 7 Days Forms: [facility] Discharge Summary
[2020-07-08] MEDS: PRENATAL VIT27-FE FUMARATE-FOLIC ACID VIT TAB PO SCH (09:58)
[2020-07-08] MEDS: NIFEdipine XL 30 MG TAB PO SCH (09:58)
[2020-07-08 14:54] VITALS: BP 155/84
== END 2020-07-08 14:00 | disposition home or self-care (01) | DRG 766 ==
LOC: TRG 17:06 → APU 17:09 → LD 18:49 → TRG 18:49 → OB 07-06 20:55
PROVIDERS: ADMIT Obstetrics & Gynecology; ATTEND Obstetrics & Gynecology
PROC: 10D00Z1 Extraction of Products of Conception, Low, Open Approach (ICD-10-PCS; principal; 2020-07-05)
PROC: 0UB70ZZ Excision of Bilateral Fallopian Tubes, Open Approach (ICD-10-PCS; 2020-07-05)
PROC: 3E0R3BZ Introduction of Anesthetic Agent into Spinal Canal, Percutaneous Approach (ICD-10-PCS; 2020-07-05)
PROC: 00HU33Z Insertion of Infusion Device into Spinal Canal, Percutaneous Approach (ICD-10-PCS; 2020-07-05)
PROC: 3E0234Z Introduction of Serum, Toxoid and Vaccine into Muscle, Percutaneous Approach (ICD-10-PCS; 2020-07-06)
PROC: 3E0134Z Introduction of Serum, Toxoid and Vaccine into Subcutaneous Tissue, Percutaneous Approach (ICD-10-PCS; 2020-07-06)
DX: O11.4 Pre-existing hypertension with pre-eclampsia, complicating childbirth (principal); O62.0 Primary inadequate contractions; O09.513 Supervision of elderly primigravida, third trimester; O99.214 Obesity complicating childbirth; E66.01 Morbid (severe) obesity due to excess calories; Z20.828 Contact with and (suspected) exposure to other viral communicable diseases; Z3A.35 35 weeks gestation of pregnancy; Z37.0 Single live birth; Z30.2 Encounter for sterilization
CPT/HCPCS: 36415; 59025; 59200; 76816; 82565; 83615; 83735; 84156; 84450; 84460; 84550; 85014; 85018; 85027; 86592; 86850; 86900; 86901; 87116; 88302; 88307; 96372; G0378; J0290; J0595; J0690; J0702; J1885; J2274; J2405; J2590; J2765; J3010; J3475; J7120; U0003